=== PATIENT | female | born 1970 | race Caucasian/White ===

== ENCOUNTER → 2016-10-10 | Outpatient (CLI) | payer MEDICAID ==
--- NOTE | 2016-10-11 09:47 | MM ---
Reason for exam: screening (asymptomatic). Last mammogram was performed 1 year and 5 months ago. History: Took hormonal contraceptives for 6 years beginning at age 34. Physical Findings: A clinical breast exam by your physician is recommended on an annual basis and results should be correlated with mammographic findings. MG 3D Screening Mammo W/Cad Bilateral CC and MLO view(s) were taken. Prior study comparison: May 14, 2015, bilateral MG 3d screening mammo w/cad. There are scattered fibroglandular densities. There is no discrete abnormality. ASSESSMENT: Negative, BI-RAD 1 RECOMMENDATION: Routine screening mammogram of both breasts in 1 year.
== END | disposition home or self-care (01) ==
LOC: RADMAMWWP 08:00
PROVIDERS: ATTEND Family Medicine
DX: Z12.31 Encounter for screening mammogram for malignant neoplasm of breast (principal)
CPT/HCPCS: 77063; G0202

== ENCOUNTER → 2017-09-27 | Outpatient (CLI) | payer MEDICAID ==
[2017-09-27 07:39] LABS: Basophils % (A) 0 %; Eosinophils # (A) 0.2 k/uL (0-0.7); Eosinophils % (A) 2 %; HCT 39.9 % (34.0-46.0); Lymphocytes # (A) 1.3 k/uL (1.0-4.8); Lymphocytes % (A) 16 %; MCHC 32.5 g/dL (31.0-37.0); Mean Platelet Volume 6.4; Monocytes # (A) 0.5 k/uL (0-1.0); Monocytes % (A) 6 %; Neutrophils % (A) 74 %; Platelet Count 330 k/uL (150-450); RDW 15.6 % (11.5-15.5); WBC 8.2 k/uL (3.8-10.6)
[2017-09-27 08:04] LABS: ALT 25 U/L (9-52); AST 15 U/L (14-36); Albumin 3.6 g/dL (3.5-5.0); Alkaline Phosphatase 92 U/L (38-126); Anion Gap 12 mmol/L; Blood Urea Nitrogen 11 mg/dL (7-17); Carbon Dioxide 24 mmol/L (22-30); Chloride 106 mmol/L (98-107); Cholesterol 142 mg/dL (<200); Glucose 92 mg/dL (74-99); HDL Cholesterol 56 mg/dL (40-60); LDL Cholesterol,Calculated 74 mg/dL (0-99); Potassium 4.3 mmol/L (3.5-5.1); Sodium 142 mmol/L (137-145); Total Bilirubin 0.5 mg/dL (0.2-1.3); Total Protein 6.4 g/dL (6.3-8.2); Triglycerides 60 mg/dL (<150)
== END | disposition home or self-care (01) ==
LOC: LABWHC1 07:08
PROVIDERS: ATTEND Physician Assistant Medical
DX: Z00.00 Encounter for general adult medical examination without abnormal findings (principal)
CPT/HCPCS: 36415; 80053; 80061; 82306; 84443; 85025

== ENCOUNTER 2018-06-06 04:25 | Inpatient (IN) | payer MEDICAID ==
[2018-06-06 05:05] LABS: Basophils % (A) 0 %; Eosinophils # (A) 0.3 k/uL (0-0.7); Eosinophils % (A) 3 %; HCT 39.6 % (34.0-46.0); HGB 12.7 gm/dL (11.4-16.0); Hypochromasia Slight; Lymphocytes # (A) 1.8 k/uL (1.0-4.8); Lymphocytes % (A) 17 %; MCH 25.6 pg (25.0-35.0); MCV 80.2 fL (80.0-100.0); Mean Platelet Volume 6.1; Monocytes # (A) 0.5 k/uL (0-1.0); Monocytes % (A) 5 %; Neutrophils # (A) 7.8 k/uL (1.3-7.7); Neutrophils % (A) 74 %; Platelet Count 408 k/uL (150-450); RBC 4.94 m/uL (3.80-5.40); RDW 15.3 % (11.5-15.5); WBC 10.6 k/uL (3.8-10.6)
--- NOTE | 2018-06-06 05:17 | XR ---
EXAM: XR Chest, 2 Views CLINICAL HISTORY: Chest Pain TECHNIQUE: Frontal and lateral views of the chest. COMPARISON: 02/23/15 FINDINGS: Lungs: Unremarkable. No consolidation. Pleural space: Unremarkable. No pneumothorax. Heart: Unremarkable. No cardiomegaly. Mediastinum: Unremarkable. Bones/joints: Unremarkable. IMPRESSION: No acute findings or substantial change
[2018-06-06 05:18] LABS: ALT 28 U/L (9-52); AST 16 U/L (14-36); Albumin 3.9 g/dL (3.5-5.0); Alkaline Phosphatase 101 U/L (38-126); Amylase 58 U/L (30-110); Anion Gap 7 mmol/L; Blood Urea Nitrogen 19 mg/dL (7-17); Calcium 9.2 mg/dL (8.4-10.2); Carbon Dioxide 23 mmol/L (22-30); Chloride 108 mmol/L (98-107); D-Dimer 0.47 mg/L FEU (<0.60); Glucose 104 mg/dL (74-99); INR 0.9 (<1.2); Lipase 115 U/L (23-300); Partial Thromboplastin Time 23.6 sec (22.0-30.0); Potassium 4.5 mmol/L (3.5-5.1); Prothrombin Time 10.1 sec (9.0-12.0); Sodium 138 mmol/L (137-145); Total Bilirubin 0.5 mg/dL (0.2-1.3); Total Protein 7.1 g/dL (6.3-8.2)
[2018-06-06 05:24] LABS: Creatine Kinase 42 U/L (30-135)
[2018-06-06 05:37] LABS: Creatine Kinase MB 0.4 ng/mL (0.0-2.4); Troponin I <0.012 ng/mL (0.000-0.034)
--- NOTE | 2018-06-06 05:52 | ED ---
Chest Pain HPI - General Chief Complaint: Chest Pain Stated Complaint: chest pain, HTN Time Seen by Provider: 06/06/18 04:37 Source: patient Mode of arrival: ambulatory Limitations: no limitations - History of Present Illness Initial Comments: This patient is 47-year-old woman who woke about 2 hours ago with a bit of a headache. This followed shortly thereafter by having substernal chest pains, aching in character, and severe intensity. The patient notes that the pains tend to be somewhat intermittent. They tend to come on and get very bad for about a minute and then decrease for a variable period of time. No associated symptoms. MD Complaint: chest pain Onset/Timin -: hour(s) Onset: during rest Pain Location: substernal Severity: moderate Quality: aching Consistency: intermittent Improves With: nothing Worsens With: nothing - Related Data Home Medications Medication Instructions Recorded Confirmed Atorvastatin Calcium [Lipitor] 20 mg PO HS 06/06/18 06/06/18 Irbesartan/Hydrochlorothiazide 1 each PO 06/06/18 [Irbesartan-Hctz 150-12.5 mg Tb] Previous Rx's Medication Instructions Recorded Nitroglycerin Sl Tabs [Nitrostat] 0.4 mg SUBLINGUAL Q5M PRN #1 bottle 02/25/15 Allergies Allergy/AdvReac Type Severity Reaction Status Date / Time No Known Allergies Allergy Verified 02/23/15 09:22 Review of Systems ROS Statement: Those systems with pertinent positive or pertinent negative responses have been documented in the HPI. ROS Other: All systems not noted in ROS Statement are negative. Constitutional: Denies: fever, chills, weakness Respiratory: Denies: cough, dyspnea, wheezes, hemoptysis Cardiovascular: Reports: chest pain. Denies: palpitations, orthopnea, edema, syncope Gastrointestinal: Denies: abdominal pain, nausea, vomiting Genitourinary: Denies: dysuria, hematuria Musculoskeletal: Denies: back pain Skin: Denies: rash Neurological: Denies: headache, weakness, numbness EKG Findings - EKG Results: EKG: interpreted by GHISLAINE, sinus rhythm, normal axis, normal QRS, normal ST/T EKG shows: tachycardia (Rate 102 BPM) Past Medical History Past Medical History: No Reported History Additional Past Medical History / Comment(s): 02/23/15 Pt presented to [facility] ER with having at 0430 this AM got up to go to the bathroom and when she stood- severe chest pain in center of chest that radiated across back and down L arm. Other HX: Pt fell in bathtub several days ago-bruising R leg from that fall. History of Any Multi-Drug Resistant Organisms: None Reported Past Surgical History: Adenoidectomy, Appendectomy, Section, Tonsillectomy Additional Past Surgical History / Comment(s): x 2. Past Anesthesia/Blood Transfusion Reactions: No Reported Reaction Additional Past Anesthesia/Blood Transfusion Reaction / Comment(s): Pt has never recieved blood. Past Psychological History: No Psychological Hx Reported Smoking Status: Never smoker Past Alcohol Use History: Rare Past Drug Use History: None Reported - Past Family History Father Family Medical History: COPD, Coronary Artery Disease (CAD) Additional Family Medical History / Comment(s): Father has had 3 vessel CABH. He is 68yrs old. Mother Family Medical History: Hypertension Additional Family Medical History / Comment(s): Mother is 67 yrs old. General Exam Limitations: no limitations General appearance: alert, in no apparent distress Head exam: Present: atraumatic, normocephalic Eye exam: Present: normal appearance. Absent: scleral icterus, conjunctival injection ENT exam: Present: normal oropharynx Neck exam: Present: normal inspection, full ROM. Absent: tenderness Respiratory exam: Present: normal lung sounds bilaterally, chest wall tenderness. Absent: respiratory distress, wheezes, rales, rhonchi, stridor Cardiovascular Exam: Present: regular rate, normal rhythm, normal heart sounds. Absent: systolic murmur, diastolic murmur, rubs, gallop GI/Abdominal exam: Present: soft. Absent: distended, tenderness, guarding, rebound, mass Extremities exam: Present: normal inspection, normal capillary refill. Absent: pedal edema, calf tenderness Back exam: Present: normal inspection. Absent: CVA tenderness (R), CVA tenderness (L) Neurological exam: Present: alert Skin exam: Present: warm, dry, intact, normal color. Absent: rash Course Vital Signs 06/06/18 06/06/18 06/06/18 04:28 04:53 05:00 Temperature 98.9 F Pulse Rate 102 H 96 Respiratory 20 9 L Rate Blood Pressure 178/83 O2 Sat by Pulse 100 100 100 Oximetry 06/06/18 06/06/18 06/06/18 05:11 05:20 05:30 Temperature Pulse Rate 96 87 96 Respiratory 17 17 19 Rate Blood Pressure 144/93 144/93 O2 Sat by Pulse 100 100 100 Oximetry 06/06/18 06/06/18 06:00 06:30 Temperature Pulse Rate 89 84 Respiratory 23 19 Rate Blood Pressure 145/87 143/86 O2 Sat by Pulse 100 100 Oximetry Disposition Clinical Impression: Chest pain Disposition: ADMITTED IP TO THIS HOSP Condition: Good Instructions (If sedation given, give patient instructions): Chest Pain (ED) Is patient prescribed a controlled substance at d/c from ED?: No Referrals: Jenaro Love DO [Primary Care Provider] - 1-2 days
[2018-06-06] MEDS ORDERED: NITROGLYCERIN SL TABS 0.4 MG TAB SUBLINGUAL PRN (06:53)
--- NOTE | 2018-06-06 09:47 | P.CRDCN ---
History of Present Illness History of present illness: This is a pleasant 47-year-old female past medical history significant for hypertension, dyslipidemia and morbid obesity. She follows in the office with Dr. Rowe. Witnesses here in consultation for chest pain. She states she woke up around 2:00 in the morning with an extreme headache. Headache was the base of her neck with radiation up to the top of her head. She checked her blood pressure at home and it was over 180 systolic. She decided to take a shower to see if she couldn't relieve her headache after getting out of the shower she started feeling a heavy pressure sensation in the midsternal region. There is no radiation to the arm, back, neck or jaw. There is no associated shortness of breath, dizziness, palpitations, nausea, vomiting or diaphoresis. Blood pressure on arrival to the emergency department 178/83 heart rate 102. She was given no medications since arrival and blood pressure this morning has come down to the 140 systolic. Hydrochlorothiazide was added to her daily regimen but she has yet to receive a dose. EKG reveals sinus mechanism with nonspecific abnormalities noted. No acute ST or T-wave abnormalities. Chest x-ray negative for an acute cardiopulmonary process. Laboratory data reviewed, WBC 10.6, hemoglobin 12.7, platelets 408, d-dimer 0.47 , sodium 138, potassium 4.5, creatinine 0.79, magnesium 2.0, cardiac enzymes negative 1. Current cardiac medications include irbesartan 150 mg daily and atorvastatin 20 mg daily. Cardiac catheterization performed 2014 revealed no significant obstructive disease with a normal LVEDP and no wall motion abnormalities. Most recent echocardiogram obtained in the office August 2016 reveals preserved left ventricular systolic function with ejection fraction 55%. At the time of my exam: CONSTITUTIONAL: Denies fever. Denies chills. EYES: Denies blurred vision. Denies vision changes. Denies eye pain. EARS, NOSE, MOUTH & THROAT: Denies headache. Denies sore throat. Denies ear pain. CARDIOVASCULAR: Denies chest pain. Denies shortness of breath. Denies orthopnea. Denies PND. Denies palpitations. RESPIRATORY: Denies cough. GASTROINTESTINAL: Denies abdominal pain. Denies diarrhea. Denies constipation. Denies nausea. Denies vomiting. MUSCULOSKELETAL: Denies myalgias. INTEGUMENTARY: Denies pruitis. Denies rash. NEUROLOGIC: Denies numbness. Denies tingling. Denies weakness. PSYCHIATRIC: Denies anxiety. Denies depression. ENDOCRINE: Denies fatigue. Denies weight change. Denies polydipsia. Denies polyurina. GENITOURINARY: Denies burning, hematuria or urgency with micturation. HEMATOLOGIC: Denies history of anemia. Denies bleeding. Blood pressure 142/83 heart rate 77 afebrile maintaining oxygen saturation on room air GENERAL: This is a 47-year-old female in no apparent distress at the time of my examination. Morbidly obese. HEENT: Head is atraumatic, normocephalic. Pupils are equal, round. Sclerae anicteric. Conjunctivae are clear. Mucous membranes of the mouth are moist. Neck is supple. There is no jugular venous distention. No carotid bruit is heard. LUNGS: Clear to auscultation no wheezes, rales or rhonchi. No chest wall tenderness is noted on palpation or with deep breathing. HEART: Regular rate and rhythm without murmurs, rubs or gallops. S1 and S2 heard. ABDOMEN: Soft, nontender. Bowel sounds are heard. No organomegaly noted. EXTREMITIES: No evidence of peripheral edema and no calf tenderness noted. VASCULAR: Radial and dorsalis pedis pulses palpated, no evidence of clubbing. NEUROLOGIC: Patient is awake, alert and oriented x3. ASSESSMENT Chest pain, atypical for angina. Headache Hypertension, uncontrolled Dyslipidemia PLAN Symptoms are very atypical for angina. Patient had normal cardiac catheterization in 2014 with no evidence of obstructive coronary artery disease. Symptoms may be related to uncontrolled hypertension and headache. Agree with addition of hydrochlorothiazide to her daily regimen. Continue to obtain serial cardiac enzymes rule out an acute coronary event. Obtain 2-D echocardiogram and Doppler study to assess cardiac structure and function. If above testing is normal, she is stable for discharge from a cardiac perspective. Follow-up with Dr. Anne. Thank you kindly for this consultation. Nurse Practitioner note has been reviewed, I agree with a documented findings and plan of care. Patient was seen and examined. 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 History of Any Multi-Drug Resistant Organisms: None Reported Past Surgical History: Adenoidectomy, Appendectomy, Section, Tonsillectomy Additional Past Surgical History / Comment(s): x 2. Past Anesthesia/Blood Transfusion Reactions: No Reported Reaction Additional Past Anesthesia/Blood Transfusion Reaction / Comment(s): Pt has never recieved blood. Smoking Status: Never smoker - Past Family History Father Family Medical History: COPD, Coronary Artery Disease (CAD) Additional Family Medical History / Comment(s): Father has had 3 vessel CABH. He is 72 yrs old. Mother Family Medical History: Hypertension Additional Family Medical History / Comment(s): Mother is 70 yrs old. Medications and Allergies Home Medications Medication Instructions Recorded Confirmed Type Ascorbic Acid [Vitamin C] 500 mg PO DAILY 06/06/18 06/06/18 History Atorvastatin Calcium [Lipitor] 20 mg PO HS 06/06/18 06/06/18 History Cholecalciferol [Vitamin D3] 1,000 unit PO DAILY 06/06/18 06/06/18 History Irbesartan [Avapro] 150 mg PO DAILY 06/06/18 06/06/18 History Soy Isofla/Blk Cohosh/Mag Bark 155 mg PO DAILY 06/06/18 06/06/18 History [Estroven 155 mg Capsule] Allergies Allergy/AdvReac Type Severity Reaction Status Date / Time No Known Allergies Allergy Verified 06/06/18 07:14 Physical Exam Vitals: Vital Signs Temp Pulse Resp BP Pulse Ox 06/06/18 06:30 84 19 143/86 100 06/06/18 06:00 89 23 145/87 100 06/06/18 05:30 96 19 144/93 100 06/06/18 05:20 87 17 144/93 100 06/06/18 05:11 96 17 100 06/06/18 05:00 96 9 L 100 06/06/18 04:53 100 06/06/18 04:28 98.9 F 102 H 20 178/83 100 Intake and Output 06/05/18 06/06/18 06/06/18 22:59 06:59 14:59 Other: Weight 118.841 kg Results 06/06/18 04:51 06/06/18 04:51 Cardiac Enzymes 06/06/18 06/06/18 Range/Units 04:51 04:51 AST 16 (14-36) U/L CK-MB (CK-2) 0.4 (0.0-2.4) ng/mL Troponin I <0.012 (0.000-0.034) ng/mL Coagulation 06/06/18 Range/Units 04:51 PT 10.1 (9.0-12.0) sec APTT 23.6 (22.0-30.0) sec CBC 06/06/18 Range/Units 04:51 WBC 10.6 (3.8-10.6) k/uL RBC 4.94 (3.80-5.40) m/uL Hgb 12.7 (11.4-16.0) gm/dL Hct 39.6 (34.0-46.0) % Plt Count 408 (150-450) k/uL Comprehensive Metabolic Panel 06/06/18 Range/Units 04:51 Sodium 138 (137-145) mmol/L Potassium 4.5 (3.5-5.1) mmol/L Chloride 108 H (98-107) mmol/L Carbon Dioxide 23 (22-30) mmol/L BUN 19 H (7-17) mg/dL Creatinine 0.79 (0.52-1.04) mg/dL Glucose 104 H (74-99) mg/dL Calcium 9.2 (8.4-10.2) mg/dL AST 16 (14-36) U/L ALT 28 (9-52) U/L Alkaline Phosphatase 101 (38-126) U/L Total Protein 7.1 (6.3-8.2) g/dL Albumin 3.9 (3.5-5.0) g/dL Current Medications Generic Name Dose Route Start Last Admin Trade Name Freq PRN Reason Stop Dose Admin Aspirin 325 mg 06/07/18 09:00 Aspirin PO DAILY [facility] Atorvastatin Calcium 20 mg 06/06/18 21:00 Lipitor PO HS [facility]ILIA HCTZ/Losartan Potassium 1 each 06/06/18 09:00 Hyzaar 50-12.5 PO DAILY [facility] Sodium Chloride 1,000 mls @ 20 mls/hr 06/06/18 07:00 Saline 0.9% IV .Q24H [facility] Nitroglycerin 0.4 mg 06/06/18 06:53 Nitrostat SUBLINGUAL Q5M PRN Chest Pain Intake and Output 06/05/18 06/06/18 06/06/18 22:59 06:59 14:59 Other: Weight 118.841 kg 06/06/18 04:51 06/06/18 04:51
--- NOTE | 2018-06-06 10:04 | ECHOF ---
Referral Reason:cp MEASUREMENTS -------- HEIGHT: 152.4 cm WEIGHT: 118.8 kg BP: 143/86 IVSd: 1.2 cm (0.6 - 1.1) LVIDd: 4.1 cm (3.9 - 5.3) LVPWd: 1.2 cm (0.6 - 1.1) IVSs: 1.6 cm LVIDs: 2.5 cm LVPWs: 1.5 cm LA Diam: 3.3 cm (2.7 - 3.8) Ao Diam: 2.7 cm (2.0 - 3.7) AV Cusp: 1.7 cm (1.5 - 2.6) LA Diam: 3.9 cm (2.7 - 3.8) MV EXCURSION: 17.354 mm (> 18.000) MV EF SLOPE: 99 mm/s (70 - 150) EPSS: 0.3 cm MV E Hiram: 0.81 m/s MV DecT: 294 ms MV A Hiram: 0.85 m/s MV E/A Ratio: 0.96 RAP: 5.00 mmHg RVSP: 27.12 mmHg FINDINGS -------- Sinus rhythm. Morbid Obesity The left ventricular size is normal. There is mild concentric left ventricular hypertrophy. Overa ll left ventricular systolic function is normal with, an EF between 55 - 60 %. The right ventricle is normal in size. The left atrial size is normal. The right atrial size is normal. There is mild aortic valve sclerosis. There is no evidence of aortic regurgitation. Mild mitral annular calcification present. Mild mitral regurgitation is present. Mild tricuspid regurgitation present. There is no evidence of pulmonary hypertension. The right v entricular systolic pressure, as measured by Doppler, is 27.12mmHg. There is no pulmonic regurgitation present. The aortic root size is normal. There is no pericardial effusion. CONCLUSIONS -------- 1. Morbid Obesity 2. The left ventricular size is normal. 3. There is mild concentric left ventricular hypertrophy. 4. Overall left ventricular systolic function is normal with, an EF between 55 - 60 %. 5. The right ventricle is normal in size. 6. The left atrial size is normal. 7. The right atrial size is normal. 8. There is mild aortic valve sclerosis. 9. Mild mitral annular calcification present. 10. Mild mitral regurgitation is present. 11. Mild tricuspid regurgitation present. 12. There is no evidence of pulmonary hypertension. 13. The right ventricular systolic pressure, as measured by Doppler, is 27.12mmHg. 14. There is no pulmonic regurgitation present. 15. The aortic root size is normal. 16. There is no pericardial effusion. EDUCATION DEAN: Jessica Erwin RDCS
[2018-06-06 10:48] LABS: Cholesterol 152 mg/dL (<200); HDL Cholesterol 58 mg/dL (40-60); LDL Cholesterol,Calculated 82 mg/dL (0-99); Triglycerides 58 mg/dL (<150)
[2018-06-06 12:08] LABS: Creatine Kinase MB 8.8 ng/mL (0.0-2.4)
[2018-06-06 12:21] LABS: Troponin I 2.27 ng/mL (0.000-0.034)
[2018-06-06] MEDS ORDERED: HEPARIN SODIUM,PORCINE 5,000 UNIT/ML 1 ML VIAL IV PRN (12:25)
[2018-06-06] MEDS ORDERED: HEPARIN SODIUM,PORCINE 5,000 UNIT/ML 1 ML VIAL IV ONE (12:25)
[2018-06-06] MEDS ORDERED: ALPRAZolam 0.25 MG TAB PO PRN (12:28)
[2018-06-06] MEDS ORDERED: ALPRAZolam 0.5 MG TAB PO PRN (12:28)
[2018-06-06] MEDS ORDERED: HEPARIN SOD,PORK IN 0.45% NACL 25,000 UNIT in 0.45% NACL 1 250ML.BAG IV SCH (12:30)
[2018-06-06 13:28] LABS: Basophils % (A) 0 %; Eosinophils # (A) 0.2 k/uL (0-0.7); Eosinophils % (A) 2 %; HCT 39.4 % (34.0-46.0); HGB 12.6 gm/dL (11.4-16.0); Hypochromasia Slight; Lymphocytes % (A) 18 %; MCH 25.7 pg (25.0-35.0); MCV 80.4 fL (80.0-100.0); Mean Platelet Volume 6.2; Monocytes # (A) 0.6 k/uL (0-1.0); Monocytes % (A) 5 %; Neutrophils # (A) 8.6 k/uL (1.3-7.7); Neutrophils % (A) 74 %; Platelet Count 441 k/uL (150-450); RDW 15.3 % (11.5-15.5); WBC 11.6 k/uL (3.8-10.6)
[2018-06-06 13:40] LABS: INR 0.9 (<1.2); Partial Thromboplastin Time 24.3 sec (22.0-30.0); Prothrombin Time 10.2 sec (9.0-12.0)
[2018-06-06 14:12] LABS: Erythrocyte Sedimentation Rate 24 mm/hr (0-20)
[2018-06-06] MEDS: LOSARTAN-HCTZ 50-12.5 MG 1 EACH TAB PO SCH (14:17)
[2018-06-06] MEDS: SODIUM CHLORIDE 0.9% 1,000 ML IV SCH (17:22)
[2018-06-06] MEDS: SODIUM CHLORIDE 0.9% 1,000 ML in EMPTY BAG 1 BAG IV ONE ×2 (17:25→18:45)
[2018-06-06 17:44] LABS: Creatine Kinase MB 6.5 ng/mL (0.0-2.4)
[2018-06-06 18:09] LABS: Troponin I 2.47 ng/mL (0.000-0.034)
--- NOTE | 2018-06-06 18:28 | P.HPIM ---
History of Present Illness this is a pleasant 47 yo F with pmh of hypertension hyperlipideiam , who presents wtih chest pain of one day duration that is central radiating below the left breast, non specific or sharp in character , about 3/10 in severity and now it is 0/10 , associated with simple headache , no dyspnea or nausea or vomiting . no change in urine or bowel habits . no fever on admission her vitals looks stable however she has trending up torponin 0.012 to 2.2 and 2.4, pt hsa been evaluated by geological aide and was started on heparin drip , lipitor and aspirin . Review of Systems CONSTITUTIONAL: No fever, no malaise, no fatigue. HEENT: No recent visual problems or hearing problems. Denied any sore throat. CARDIOVASCULAR: No orthopnea, PND, no palpitations, no syncope. PULMONARY: No shortness of breath, no cough, no hemoptysis. GASTROINTESTINAL: No diarrhea, no nausea, no vomiting, no abdominal pain. Normoactive bowel sounds. NEUROLOGICAL: No headaches, no weakness, no numbness. HEMATOLOGICAL: Denies any bleeding or petechiae. GENITOURINARY: Denies any burning micturition, frequency, or urgency. MUSCULOSKELETAL/RHEUMATOLOGICAL: Denies any joint pain, swelling, or any muscle pain. ENDOCRINE: Denies any polyuria or polydipsia. 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 History of Any Multi-Drug Resistant Organisms: None Reported Past Surgical History: Adenoidectomy, Appendectomy, Section, Tonsillectomy Additional Past Surgical History / Comment(s): x 2. Past Anesthesia/Blood Transfusion Reactions: No Reported Reaction Additional Past Anesthesia/Blood Transfusion Reaction / Comment(s): Pt has never recieved blood. Smoking Status: Never smoker - Past Family History Father Family Medical History: COPD, Coronary Artery Disease (CAD) Additional Family Medical History / Comment(s): Father has had 3 vessel CABH. He is 72 yrs old. Mother Family Medical History: Hypertension Additional Family Medical History / Comment(s): Mother is 70 yrs old. Medications and Allergies Home Medications Medication Instructions Recorded Confirmed Type Ascorbic Acid [Vitamin C] 500 mg PO DAILY 06/06/18 06/06/18 History Atorvastatin Calcium [Lipitor] 20 mg PO HS 06/06/18 06/06/18 History Cholecalciferol [Vitamin D3] 1,000 unit PO DAILY 06/06/18 06/06/18 History Irbesartan [Avapro] 150 mg PO DAILY 06/06/18 06/06/18 History Soy Isofla/Blk Cohosh/Mag Bark 155 mg PO DAILY 06/06/18 06/06/18 History [Estroven 155 mg Capsule] Allergies Allergy/AdvReac Type Severity Reaction Status Date / Time No Known Allergies Allergy Verified 06/06/18 07:14 Physical Exam Vitals: Vital Signs Temp Pulse Pulse Resp BP BP Pulse Ox 06/06/18 17:20 98.2 F 77 16 135/86 97 06/06/18 16:00 83 16 06/06/18 14:15 98 06/06/18 09:02 98 06/06/18 08:00 98.4 F 77 18 142/83 99 06/06/18 06:30 84 19 143/86 100 06/06/18 06:00 89 23 145/87 100 06/06/18 05:30 96 19 144/93 100 06/06/18 05:20 87 17 144/93 100 06/06/18 05:11 96 17 100 06/06/18 05:00 96 9 L 100 06/06/18 04:53 100 06/06/18 04:28 98.9 F 102 H 20 178/83 100 Intake and Output 06/06/18 06/06/18 06/06/18 06:59 14:59 22:59 Intake Total 0 Balance 0 Intake: Oral 0 Other: Voiding Method Toilet Weight 118.841 kg GENERAL: The patient is alert and oriented x3, not in any acute distress. Well developed, well nourished. HEENT: Pupils are round and equally reacting to light. EOMI. No scleral icterus. No conjunctival pallor. Normocephalic, atraumatic. No pharyngeal erythema. No thyromegaly. CARDIOVASCULAR: S1 and S2 present. No murmurs, rubs, or gallops. PULMONARY: Chest is clear to auscultation, no wheezing or crackles. ABDOMEN: Soft, nontender, nondistended, normoactive bowel sounds. No palpable organomegaly. MUSCULOSKELETAL: No joint swelling or deformity. EXTREMITIES: No cyanosis, clubbing, or pedal edema. NEUROLOGICAL: Gross neurological examination did not reveal any focal deficits. SKIN: No rashes. Results CBC & Chem 7: 06/06/18 13:11 06/06/18 04:51 Labs: Abnormal Lab Results - Last 24 Hours (Table) 06/06/18 06/06/18 06/06/18 Range/Units 04:51 04:51 11:18 WBC (3.8-10.6) k/uL Neutrophils # 7.8 H (1.3-7.7) k/uL ESR (0-20) mm/hr Chloride 108 H (98-107) mmol/L BUN 19 H (7-17) mg/dL Glucose 104 H (74-99) mg/dL Total Creatine Kinase 197 H (30-135) U/L CK-MB (CK-2) 8.8 H (0.0-2.4) ng/mL Troponin I 2.270 H* (0.000-0.034) ng/mL C-Reactive Protein (<10.0) mg/L 06/06/18 06/06/18 06/06/18 Range/Units 13:11 13:11 16:54 WBC 11.6 H (3.8-10.6) k/uL Neutrophils # 8.6 H (1.3-7.7) k/uL ESR 24 H (0-20) mm/hr Chloride (98-107) mmol/L BUN (7-17) mg/dL Glucose (74-99) mg/dL Total Creatine Kinase (30-135) U/L CK-MB (CK-2) 6.5 H (0.0-2.4) ng/mL Troponin I 2.470 H* (0.000-0.034) ng/mL C-Reactive Protein 13.7 H (<10.0) mg/L Thrombosis Risk Factor Assmnt - Choose All That Apply Any of the Below Risk Factors Present?: Yes Each Factor Represents 1 point: Age 41-60 years, Obesity (BMI >25) Other Risk Factors: No Other congenital or acquired thrombophilia - If yes, enter type in comment: No Thrombosis Risk Factor Assessment Total Risk Factor Score: 2 Thrombosis Risk Factor Assessment Level: Low Risk Assessment and Plan Assessment: non STEMI hypertension hyperlipidemia obesity mild leukocytosis , mostly reactive Plan: this is a pleasant 47 yo F who presents with non STEMI, continue with heparin drip , asa and statin , pt may go to cardiac cath tomorrow Labs and medication were reviewed.. Continue same treatment. Continue with symptomatic treatment. Resume home medication. Monitor lytes and vitals. DVT and GI prophylaxis. Further recommendations of the clinical course of the patient DVT prophylaxis: heparin GI Prophylaxis: Pepcid Prognosis is guarded
[2018-06-06] MEDS: FAMOTIDINE 20 MG/2 ML VIAL IV SCH (20:09)
[2018-06-06] MEDS ORDERED: ATORVASTATIN 20 MG TAB PO SCH (21:00)
[2018-06-07 02:27] LABS: Basophils % (A) 0 %; Eosinophils # (A) 0.3 k/uL (0-0.7); Eosinophils % (A) 3 %; HCT 37.7 % (34.0-46.0); HGB 12.3 gm/dL (11.4-16.0); Hypochromasia Slight; Lymphocytes % (A) 22 %; MCH 26.2 pg (25.0-35.0); MCHC 32.6 g/dL (31.0-37.0); MCV 80.3 fL (80.0-100.0); Mean Platelet Volume 6.1; Monocytes # (A) 0.6 k/uL (0-1.0); Monocytes % (A) 6 %; Neutrophils # (A) 6.2 k/uL (1.3-7.7); Neutrophils % (A) 67 %; Platelet Count 350 k/uL (150-450); RDW 15.2 % (11.5-15.5); WBC 9.3 k/uL (3.8-10.6)
[2018-06-07] MEDS ORDERED: ACETAMINOPHEN TAB 500 MG TAB PO PRN (04:21)
[2018-06-07] MEDS: FAMOTIDINE 20 MG/2 ML VIAL IV SCH ×2 (05:48→20:07)
[2018-06-07] MEDS: SODIUM CHLORIDE 0.9% 1,000 ML IV SCH (06:46)
[2018-06-07] MEDS: LOSARTAN-HCTZ 50-12.5 MG 1 EACH TAB PO SCH (06:46)
[2018-06-07] MEDS ORDERED: NITROGLYCERIN SL TABS 0.4 MG TAB SUBLINGUAL PRN (08:40)
[2018-06-07] MEDS ORDERED: ASPIRIN 325 MG TAB PO STA (08:40)
[2018-06-07] MEDS ORDERED: ALPRAZolam 0.5 MG TAB PO PRN (08:40)
[2018-06-07] MEDS ORDERED: ALPRAZolam 0.25 MG TAB PO PRN (08:40)
[2018-06-07] MEDS ORDERED: SODIUM CHLORIDE 0.9% 1,000 ML in EMPTY BAG 1 BAG IV ONE (08:40)
[2018-06-07] MEDS ORDERED: ATORVASTATIN 80 MG TAB PO STA (08:44)
[2018-06-07] MEDS ORDERED: ASPIRIN 325 MG TAB PO SCH (09:00)
[2018-06-07] MEDS ORDERED: VERAPAMIL 2.5 MG/ML 2 ML AMP ONE (09:09)
[2018-06-07] MEDS ORDERED: LIDOCAINE 1% INJ 10MG/ML (20 ML MDV) ONE (09:09)
[2018-06-07] MEDS ORDERED: IV FLUID CONTINUATION 425 ML IV ONE (09:10)
[2018-06-07] MEDS ORDERED: fentaNYL (PF) 50 MCG/ML 2 ML AMP ONE (09:10)
[2018-06-07] MEDS ORDERED: fentaNYL (PF) 50 MCG/ML 2 ML AMP IVP ONE (09:36)
[2018-06-07] MEDS ORDERED: LIDOCAINE 1% INJ 10MG/ML (20 ML MDV) SQ ONE (09:40)
[2018-06-07] MEDS ORDERED: MIDAZOLAM 2 MG/2 ML VIAL IVP ONE (09:42)
[2018-06-07] MEDS ORDERED: VERAPAMIL SYRINGE (5 MG/10 ML) INTRAARTER ONE (09:45)
[2018-06-07] MEDS ORDERED: HEPARIN SODIUM 1,000 UN/ML (10ML VL) ONE (09:51)
[2018-06-07] MEDS ORDERED: HEPARIN SODIUM 1,000 UN/ML (10ML VL) IV ONE (09:52)
[2018-06-07] MEDS ORDERED: IOPAMIDOL-370 100ML BTL INJ ONE (09:59)
[2018-06-07] MEDS ORDERED: RX INFO: IV CONTRAST WAS GIVEN 1 EACH MISC MISCELLANE PRN (10:13)
[2018-06-07] MEDS ORDERED: SODIUM CHLORIDE 0.9% 1,000 ML IV SCH (10:15)
--- NOTE | 2018-06-07 10:39 | PN ---
PROGRESS NOTE Mrs. Culver is a 47-year-old female who was admitted yesterday with headache and chest discomfort. She was evaluated by Dr. Spencer. She underwent an echocardiogram that revealed a preserved ventricular size and systolic function with mild mitral and tricuspid regurgitation. She is feeling well this morning. She has no further chest pain. Her troponin are up to 2.470, but her EKG shows no acute changes. Her BUN and creatinine 19 and 0.79, and her hemoglobin is 12.6. Her white blood cell of 11.6. PHYSICAL EXAMINATION: Blood pressure 135/60 with a heart rate in the 80s. LUNGS: Clear. HEART: Regular rate and rhythm, S1, S2. No S3. No rub. ABDOMEN: Soft, nontender. EXTREMITIES: No edema. IMPRESSION: 1. Troponin elevation in a patient who underwent cardiac catheterization in 2014 and at that time, she had no evidence of high-grade stenosis. At that time she was told that she may have had myopericarditis, although the EKG this time is not consistent with that. 2. History of hypertension. 3. Hyperlipidemia. RECOMMENDATION: At this time, I would recommend to proceed with cardiac catheterization to further evaluate her coronary anatomy. It is possible that the patient is having vasospastic disease and depending on that, further recommendation will be made. I have discussed with the patient and her the recommendation and the finding and they are in full understanding and agreement. MMODL / IJN: [id number] /
--- NOTE | 2018-06-07 12:09 | CC ---
CARDIAC CATHETERIZATION REPORT Mrs. Culver is a 47-year-old female with no prior documented history of coronary artery disease who presented with symptoms of headache and subsequently chest discomfort and had elevation of her troponin with no acute ST-segment changes. In view of that, recommendation made regarding cardiac catheterization, the procedures, risks and complications were discussed with the patient who is in full understanding and agreement. PROCEDURE: Patient was brought to engineer [facility] laboratory in a fasting semi-sedated state after receiving fentanyl and Benadryl and achieving moderate conscious sedated state. Using Xylocaine anesthesia and Seldinger technique, a 6-Malawian sheath was introduced in the right radial artery. Selective right and left angiography was performed using 5-Malawian 3.5 bend right and left Jose Alejandro catheter, multiple views of the coronary artery including hemiaxial views obtained. Following that, catheter and sheath were removed. Hemostasis was obtained with deployment of a TR band. There was no immediate complication. Patient is returned to her room in stable condition. FINDINGS: LEFT MAIN: This is a large-sized vessel, bifurcating into left circumflex, left anterior descending artery. Left main coronary artery has no evidence of high-grade stenosis. LEFT ANTERIOR DESCENDING ARTERY: This is a large-sized vessel, reaching toward the apex, tapers down the distal third, giving rise to two diagonal branches of moderate caliber. The left anterior descending artery has no evidence of high-grade stenosis. LEFT CIRCUMFLEX: This is a large nondominant vessel, giving rise to two large obtuse marginal branches. The left circumflex as well as branches have no evidence of obstructive coronary artery disease. RIGHT CORONARY ARTERY: This is a large dominant vessel, bifurcating distally into PDA and posterolateral segment and branches. The right coronary artery as well as branches have no evidence of obstructive coronary artery disease. LEFT VENTRICULOGRAM: The left ventriculogram was not performed. CONCLUSION: Normal coronary arteries. RECOMMENDATION: In view of finding anatomy, I have recommended to continue with present medical therapy. It is possible that the patient had evidence off vasospastic disease explaining her chest discomfort and elevation of the troponin. She will be started on a calcium channel osiris and depending on her progress, further recommendation will be made. Those findings and recommendation were discussed with the patient and her family who are in full understanding and agreement. Duration of procedure is 24 minutes. MMODL / IJN: [id number] /
[2018-06-07] MEDS: DILTIAZEM ORAL 30 MG TAB PO SCH ×3 (12:10→23:09)
--- NOTE | 2018-06-07 20:30 | P.PN ---
Subjective this is a pleasant 47 yo F with pmh of hypertension hyperlipideiam , who presents wtih chest pain of one day duration that is central radiating below the left breast, non specific or sharp in character , about 3/10 in severity and now it is 0/10 , associated with simple headache , no dyspnea or nausea or vomiting . no change in urine or bowel habits . no fever on admission her vitals looks stable however she has trending up torponin 0.012 to 2.2 and 2.4, pt hsa been evaluated by supervisor [employer] and was started on heparin drip , lipitor and aspirin . 06/07/2018 pt is status cardiac cath which showed patent coronary arteries, pt mostly has vasospastic disease and pt was started on calcium channel osiris, pt feel better after the procedure with no chest pain or dyspnea Objective - Vital Signs Vital signs: Vital Signs Temp 99.0 F 06/07/18 16:22 Pulse 80 06/07/18 16:22 Resp 16 06/07/18 16:22 BP 142/77 06/07/18 16:22 Pulse Ox 96 06/07/18 11:39 Intake & Output 06/07/18 06/07/18 06/08/18 06:59 18:59 06:59 Intake Total 74.517 100 Output Total 2 600 Balance 72.517 -500 Weight 117 kg Intake: IV 100 Intake, IV Titration 74.517 Amount Heparin Sod,Pork in 0.45% 74.517 NaCl 25,000 unit In 0.45 % NaCl 1 250ml.bag @ 8.4 UNITS/KG/HR 9.98 mls/hr IV .Q24H [facility] Rx#: [id number] Output: Urine 2 600 Other: Voiding Method Toilet - Exam GENERAL: The patient is alert and oriented x3, not in any acute distress. Well developed, well nourished. HEENT: Pupils are round and equally reacting to light. EOMI. No scleral icterus. No conjunctival pallor. Normocephalic, atraumatic. No pharyngeal erythema. No thyromegaly. CARDIOVASCULAR: S1 and S2 present. No murmurs, rubs, or gallops. PULMONARY: Chest is clear to auscultation, no wheezing or crackles. ABDOMEN: Soft, nontender, nondistended, normoactive bowel sounds. No palpable organomegaly. MUSCULOSKELETAL: No joint swelling or deformity. EXTREMITIES: No cyanosis, clubbing, or pedal edema. NEUROLOGICAL: Gross neurological examination did not reveal any focal deficits. SKIN: No rashes. - Labs CBC & Chem 7: 06/07/18 02:03 06/06/18 04:51 Labs: Abnormal Lab Results - Last 24 Hours (Table) 06/07/18 Range/Units 02:03 APTT 55.4 H (22.0-30.0) sec Assessment and Plan Assessment: non STEMI, mostly secondary to vasospastic disease hypertension hyperlipidemia obesity mild leukocytosis , mostly reactive Plan: this is a pleasant 47 yo F who presents with non STEMI, found to have vasospastic disease and was started on calcium channel osiris . continue with asa and statin , pt may be discharged in 24 hours if stable Labs and medication were reviewed.. Continue same treatment. Continue with symptomatic treatment. Resume home medication. Monitor lytes and vitals. DVT and GI prophylaxis. Further recommendations of the clinical course of the patient DVT prophylaxis: heparin GI Prophylaxis: Pepcid Prognosis is guarded
[2018-06-07] MEDS: HEPARIN SODIUM,PORCINE 5,000 UNIT/ML 1 ML VIAL SQ SCH (23:04)
[2018-06-08] MEDS: SODIUM CHLORIDE 0.9% 1,000 ML IV SCH (04:08)
[2018-06-08 06:56] LABS: Anion Gap 8 mmol/L; Blood Urea Nitrogen 10 mg/dL (7-17); Calcium 9.4 mg/dL (8.4-10.2); Carbon Dioxide 28 mmol/L (22-30); Chloride 104 mmol/L (98-107); Glucose 96 mg/dL (74-99); Potassium 4.8 mmol/L (3.5-5.1); Sodium 140 mmol/L (137-145)
[2018-06-08] MEDS: ASPIRIN 81 MG PO SCH (08:31)
[2018-06-08] MEDS: HEPARIN SODIUM,PORCINE 5,000 UNIT/ML 1 ML VIAL SQ SCH ×2 (08:31→20:30)
[2018-06-08] MEDS: FAMOTIDINE 20 MG/2 ML VIAL IV SCH ×2 (08:31→08:39)
[2018-06-08] MEDS: DILTIAZEM ORAL 30 MG TAB PO SCH (08:31)
[2018-06-08] MEDS: LOSARTAN-HCTZ 50-12.5 MG 1 EACH TAB PO SCH (08:32)
[2018-06-08] MEDS: IBUPROFEN 600 MG TAB PO SCH ×2 (11:45→18:16)
[2018-06-08] MEDS: COLCHICINE 0.6 MG EACH PO SCH ×2 (11:46→20:31)
[2018-06-08] MEDS: DILTIAZEM CD 120 MG CAP.ER.24H PO SCH (12:02)
--- NOTE | 2018-06-08 12:57 | P.PN ---
Subjective Progress Note Date: 06/08/18 This is a pleasant 47-year-old female past medical history significant for hypertension, dyslipidemia and morbid obesity. She follows in the office with Dr. Rowe. Witnesses here in consultation for chest pain. She states she woke up around 2:00 in the morning with an extreme headache. Headache was the base of her neck with radiation up to the top of her head. She checked her blood pressure at home and it was over 180 systolic. She decided to take a shower to see if she couldn't relieve her headache after getting out of the shower she started feeling a heavy pressure sensation in the midsternal region. There is no radiation to the arm, back, neck or jaw. There is no associated shortness of breath, dizziness, palpitations, nausea, vomiting or diaphoresis. Blood pressure on arrival to the emergency department 178/83 heart rate 102. She was given no medications since arrival and blood pressure this morning has come down to the 140 systolic. Hydrochlorothiazide was added to her daily regimen but she has yet to receive a dose. EKG reveals sinus mechanism with nonspecific abnormalities noted. No acute ST or T-wave abnormalities. Chest x-ray negative for an acute cardiopulmonary process. Laboratory data reviewed, WBC 10.6, hemoglobin 12.7, platelets 408, d-dimer 0.47 , sodium 138, potassium 4.5, creatinine 0.79, magnesium 2.0, cardiac enzymes negative 1. Current cardiac medications include irbesartan 150 mg daily and atorvastatin 20 mg daily. Cardiac catheterization performed 2014 revealed no significant obstructive disease with a normal LVEDP and no wall motion abnormalities. Most recent echocardiogram obtained in the office August 2016 reveals preserved left ventricular systolic function with ejection fraction 55%. 06/08/2018 Patient was taken to the cardiac catheterization lab yesterday where she was not found to have any significant obstructive coronary artery disease. It was felt that the patient may have an element of vasospasm. Blood pressure this morning 128/70 with a heart rate in the 70s, 98% on room air. Sedimentation rate came back elevated at 24, C-reactive protein elevated at 13.7. Suggesting a possible element of pericarditis. We initiated the patient on colchicine and nonsteroidal anti-inflammatories today. We will continue to observe her overnight. The recommendation is that the patient undergo a cardiac MRI as an outpatient for more definitive diagnosis. This was explained to the patient and her in detail. Objective - Vital Signs Vital signs: Vital Signs Temp 99.3 F 06/08/18 12:00 Pulse 77 06/08/18 12:00 Resp 18 06/08/18 12:00 BP 129/72 06/08/18 12:00 Pulse Ox 98 06/08/18 12:00 Intake & Output 06/07/18 06/08/18 06/08/18 18:59 06:59 18:59 Intake Total 100 1000 Output Total 600 Balance -500 1000 Weight 116.2 kg Intake: IV 100 Intake, IV Titration 1000 Amount Sodium Chloride 0.9% 1, 1000 000 ml In Empty Bag 1 bag @ 1 ML/KG/HR 117 mls/hr IV .Q8H33M [facility] Rx#: [id number] Output: Urine 600 Other: Voiding Method Toilet # Voids 1 1 - Exam PHYSICAL EXAMINATION: GENERAL: 47-year-old female in no acute distress at the time of my examination HEENT: Head is atraumatic, normocephalic. Pupils equal, round. Sclera anicteric. Conjunctiva are clear. Mucous membranes of the mouth are moist. Neck is supple. There is no elevated jugular venous pressure. No carotid bruit is heard. HEART EXAMINATION: Heart S1, S2 normal. No murmur or gallop heard. CHEST EXAMINATION: Lungs are clear to auscultation and precussion. No chest wall tenderness is noted on palpation or with deep breathing. ABDOMEN: Soft, nontender. Bowel sounds are heard. No organomegaly noted. EXTREMITIES: 2+ peripheral pulses with no evidence of peripheral edema and no calf tenderness noted. Radial site clean and dry, good distal pulse. NEUROLOGIC patient is awake, alert and oriented 3 . . - Labs CBC & Chem 7: 06/07/18 02:03 06/08/18 06:10 Assessment and Plan Plan: Assessment and plan #1 Chest pain, atypical for angina. With abnormality in troponin, status post cardiac catheterization which did not reveal any obstructive coronary artery disease #2 Headache #3 Hypertension, uncontrolled #4 Dyslipidemia Plan CRP and sedimentation rate did come back elevated, we will start the patient on some nonsteroidals along with colchicine. We also will schedule the patient for an cardiac MRI early next week at [facility] as an outpatient. Continue to observe for 24 hours. DNP note has been reviewed, I agree with a documented findings and plan of care. Patient was seen and examined.
--- NOTE | 2018-06-08 19:05 | P.PN ---
Subjective this is a pleasant 47 yo F with pmh of hypertension hyperlipideiam , who presents wtih chest pain of one day duration that is central radiating below the left breast, non specific or sharp in character , about 3/10 in severity and now it is 0/10 , associated with simple headache , no dyspnea or nausea or vomiting . no change in urine or bowel habits . no fever on admission her vitals looks stable however she has trending up torponin 0.012 to 2.2 and 2.4, pt hsa been evaluated by academic support coordinator and was started on heparin drip , lipitor and aspirin . 06/07/2018 pt is status cardiac cath which showed patent coronary arteries, pt mostly has vasospastic disease and pt was started on calcium channel osiris, pt feel better after the procedure with no chest pain or dyspnea 06/08/2018 Patient was seen in the general medical floor today, she remains clinically stable with no chest pain or dyspnea. She is mobile with no problems. No headache. Patient also on colchicine and aspirin for possible myocarditis, also patient on ibuprofen morphine for pain and anti-inflammatory management. Patient is being followed by cardiology and kept in-house for further monitoring and possible discharge in 24-48 hours. Objective - Vital Signs Vital signs: Vital Signs Temp 98.9 F 06/08/18 16:00 Pulse 75 06/08/18 16:00 Resp 18 06/08/18 16:00 BP 128/72 06/08/18 16:00 Pulse Ox 97 06/08/18 16:00 Intake & Output 06/08/18 06/08/18 06/09/18 06:59 18:59 06:59 Intake Total 1000 0 Balance 1000 0 Weight 116.2 kg Intake: Intake, IV Titration 1000 Amount Sodium Chloride 0.9% 1, 1000 000 ml In Empty Bag 1 bag @ 1 ML/KG/HR 117 mls/hr IV .Q8H33M [facility] Rx#: [id number] Oral 0 Other: Voiding Method Toilet # Voids 1 1 - Exam GENERAL: The patient is alert and oriented x3, not in any acute distress. Well developed, well nourished. HEENT: Pupils are round and equally reacting to light. EOMI. No scleral icterus. No conjunctival pallor. Normocephalic, atraumatic. No pharyngeal erythema. No thyromegaly. CARDIOVASCULAR: S1 and S2 present. No murmurs, rubs, or gallops. PULMONARY: Chest is clear to auscultation, no wheezing or crackles. ABDOMEN: Soft, nontender, nondistended, normoactive bowel sounds. No palpable organomegaly. MUSCULOSKELETAL: No joint swelling or deformity. EXTREMITIES: No cyanosis, clubbing, or pedal edema. NEUROLOGICAL: Gross neurological examination did not reveal any focal deficits. SKIN: No rashes. - Labs CBC & Chem 7: 06/07/18 02:03 06/08/18 06:10 Assessment and Plan Assessment: non STEMI, mostly secondary to vasospastic disease hypertension hyperlipidemia obesity mild leukocytosis , mostly reactive Plan: this is a pleasant 47 yo F who presents with non STEMI, found to have vasospastic disease and was started on calcium channel osiris . continue with asa and statin , pt may be discharged in 24 hours if stable Labs and medication were reviewed.. Continue same treatment. Continue with symptomatic treatment. Resume home medication. Monitor lytes and vitals. DVT and GI prophylaxis. Further recommendations of the clinical course of the patient DVT prophylaxis: heparin GI Prophylaxis: Pepcid Prognosis is guarded
[2018-06-08] MEDS: FAMOTIDINE 20 MG TAB PO SCH (20:31)
[2018-06-08] MEDS ORDERED: ATORVASTATIN 20 MG TAB PO SCH (21:00)
[2018-06-09] MEDS: IBUPROFEN 600 MG TAB PO SCH ×2 (09:05→12:13)
[2018-06-09] MEDS: ASPIRIN 81 MG PO SCH (09:05)
[2018-06-09] MEDS: DILTIAZEM CD 120 MG CAP.ER.24H PO SCH (09:05)
[2018-06-09] MEDS: LOSARTAN-HCTZ 50-12.5 MG 1 EACH TAB PO SCH (09:05)
[2018-06-09] MEDS: COLCHICINE 0.6 MG EACH PO SCH (09:05)
[2018-06-09] MEDS: FAMOTIDINE 20 MG TAB PO SCH (09:05)
[2018-06-09] MEDS: HEPARIN SODIUM,PORCINE 5,000 UNIT/ML 1 ML VIAL SQ SCH (09:06)
[2018-06-09 09:14] VITALS: TEMP 98.8
[2018-06-09 10:38] LABS: Basophils % (A) 0 %; Eosinophils # (A) 0.3 k/uL (0-0.7); Eosinophils % (A) 4 %; HCT 40.7 % (34.0-46.0); HGB 12.8 gm/dL (11.4-16.0); Hypochromasia Slight; Lymphocytes # (A) 1.6 k/uL (1.0-4.8); Lymphocytes % (A) 18 %; MCH 25.6 pg (25.0-35.0); MCHC 31.4 g/dL (31.0-37.0); MCV 81.7 fL (80.0-100.0); Mean Platelet Volume 6.8; Monocytes # (A) 0.8 k/uL (0-1.0); Monocytes % (A) 9 %; Neutrophils # (A) 5.9 k/uL (1.3-7.7); Neutrophils % (A) 67 %; Platelet Count 394 k/uL (150-450); RBC 4.99 m/uL (3.80-5.40); RDW 15.5 % (11.5-15.5); WBC 8.9 k/uL (3.8-10.6)
[2018-06-09 10:47] LABS: Anion Gap 8 mmol/L; Blood Urea Nitrogen 13 mg/dL (7-17); Calcium 9.4 mg/dL (8.4-10.2); Carbon Dioxide 23 mmol/L (22-30); Chloride 107 mmol/L (98-107); Glucose 91 mg/dL (74-99); Potassium 4.8 mmol/L (3.5-5.1); Sodium 138 mmol/L (137-145)
[2018-06-09 12:42] VITALS: BP 150/86; PULSE 90; RESP 18
--- NOTE | 2018-06-09 14:56 | P.PN ---
Subjective Progress Note Date: 06/09/18 This is a pleasant 47-year-old female past medical history significant for hypertension, dyslipidemia and morbid obesity. She follows in the office with Dr. Rowe. Witnesses here in consultation for chest pain. She states she woke up around 2:00 in the morning with an extreme headache. Headache was the base of her neck with radiation up to the top of her head. She checked her blood pressure at home and it was over 180 systolic. She decided to take a shower to see if she couldn't relieve her headache after getting out of the shower she started feeling a heavy pressure sensation in the midsternal region. There is no radiation to the arm, back, neck or jaw. There is no associated shortness of breath, dizziness, palpitations, nausea, vomiting or diaphoresis. Blood pressure on arrival to the emergency department 178/83 heart rate 102. She was given no medications since arrival and blood pressure this morning has come down to the 140 systolic. Hydrochlorothiazide was added to her daily regimen but she has yet to receive a dose. EKG reveals sinus mechanism with nonspecific abnormalities noted. No acute ST or T-wave abnormalities. Chest x-ray negative for an acute cardiopulmonary process. Laboratory data reviewed, WBC 10.6, hemoglobin 12.7, platelets 408, d-dimer 0.47 , sodium 138, potassium 4.5, creatinine 0.79, magnesium 2.0, cardiac enzymes negative 1. Current cardiac medications include irbesartan 150 mg daily and atorvastatin 20 mg daily. Cardiac catheterization performed 2014 revealed no significant obstructive disease with a normal LVEDP and no wall motion abnormalities. Most recent echocardiogram obtained in the office August 2016 reveals preserved left ventricular systolic function with ejection fraction 55%. 06/08/2018 Patient was taken to the cardiac catheterization lab yesterday where she was not found to have any significant obstructive coronary artery disease. It was felt that the patient may have an element of vasospasm. Blood pressure this morning 128/70 with a heart rate in the 70s, 98% on room air. Sedimentation rate came back elevated at 24, C-reactive protein elevated at 13.7. Suggesting a possible element of pericarditis. We initiated the patient on colchicine and nonsteroidal anti-inflammatories today. We will continue to observe her overnight. The recommendation is that the patient undergo a cardiac MRI as an outpatient for more definitive diagnosis. This was explained to the patient and her in detail. 04/08/2019 Patient was seen and examined this morning, up ambulating in the [place] without any difficulty. She did have one episode of chest pain earlier this morning, sharp in nature, atypical. EKG showed normal sinus rhythm with no acute changes. She will be discharged home today. Scheduled for cardiac MRI next week at [facility]. Objective - Vital Signs Vital signs: Vital Signs Temp 98.8 F 06/09/18 08:00 Pulse 90 06/09/18 12:00 Resp 18 06/09/18 12:00 BP 150/86 06/09/18 12:00 Pulse Ox 100 06/09/18 12:00 Intake & Output 06/08/18 06/09/18 06/09/18 18:59 06:59 18:59 Intake Total 0 300 480 Balance 0 300 480 Weight 116.9 kg Intake: Oral 0 300 480 Other: Voiding Method Toilet # Voids 1 1 - Exam PHYSICAL EXAMINATION: GENERAL: 47-year-old female in no acute distress at the time of my examination HEENT: Head is atraumatic, normocephalic. Pupils equal, round. Sclera anicteric. Conjunctiva are clear. Mucous membranes of the mouth are moist. Neck is supple. There is no elevated jugular venous pressure. No carotid bruit is heard. HEART EXAMINATION: Heart S1, S2 normal. No murmur or gallop heard. CHEST EXAMINATION: Lungs are clear to auscultation and precussion. No chest wall tenderness is noted on palpation or with deep breathing. ABDOMEN: Soft, nontender. Bowel sounds are heard. No organomegaly noted. EXTREMITIES: 2+ peripheral pulses with no evidence of peripheral edema and no calf tenderness noted. Radial site clean and dry, good distal pulse. NEUROLOGIC patient is awake, alert and oriented 3 . . - Labs CBC & Chem 7: 06/09/18 10:17 06/09/18 10:17 Assessment and Plan Plan: Assessment and plan #1 Chest pain, atypical for angina. With abnormality in troponin, status post cardiac catheterization which did not reveal any obstructive coronary artery diseasepossible vasospasm, Possible myocarditis or pericarditis. #2 Headache #3 Hypertension, uncontrolled #4 Dyslipidemia Plan From cardiology's perspective, patient may be be discharged home today. She'll have a follow-up appointment in the office post discharge. We will schedule the patient for cardiac MRI next week. DNP note has been reviewed, I agree with a documented findings and plan of care. Patient was seen and examined.
== END 2018-06-09 17:14 | disposition home or self-care (01) | DRG 281 ==
LOC: EC 04:25 → 1SOBS 06:33 → 3SCARD 14:44 → OBSVTOIN 06-07 07:39
PROVIDERS: ADMIT Hospitalist; ATTEND Hospitalist
PROC: B2111ZZ Fluoroscopy of Multiple Coronary Arteries using Low Osmolar Contrast (ICD-10-PCS; 2018-06-07)
PROC: 4A023N7 Measurement of Cardiac Sampling and Pressure, Left Heart, Percutaneous Approach (ICD-10-PCS; principal; 2018-06-07 09:03)
DX: I21.4 Non-ST elevation (NSTEMI) myocardial infarction (principal); Z68.43 Body mass index [BMI] 50.0-59.9, adult; D72.829 Elevated white blood cell count, unspecified; E66.9 Obesity, unspecified; E78.5 Hyperlipidemia, unspecified; I08.1 Rheumatic disorders of both mitral and tricuspid valves; I10 Essential (primary) hypertension; Z79.899 Other long term (current) drug therapy; Z82.49 Family history of ischemic heart disease and other diseases of the circulatory system; Z82.5 Family history of asthma and other chronic lower respiratory diseases; R51 Headache
CPT/HCPCS: 36415; 71046; 80048; 80053; 80061; 82150; 82550; 82553; 83690; 83735; 84484; 85025; 85379; 85610; 85652; 85730; 86140; 93005; 93306; 93454; 99285

== ENCOUNTER → 2018-07-15 | Outpatient (CLI) | payer MEDICAID ==
--- NOTE | 2018-07-16 07:25 | US ---
EXAMINATION TYPE: US pelvis complete transvag DATE OF EXAM: 07/15/2018 COMPARISON: NONE CLINICAL HISTORY: N93.9 Abn bleeding, R10.2 Pelvic pain. Abnormal bleeding. TECHNIQUE: Transvaginal (TV) and Transabdominal (TA) . Transabdominal sonographic images of the pel vis were acquired. Transvaginal sonographic images were medically necessary to better assess the fol lowing anatomy: Ovaries and uterus. Date of LMP: 06/20/2018 EXAM MEASUREMENTS: Uterus: 10.1 x 4.8 x 5.7 cm Endometrial Stripe: 1.0 cm Left Ovary: 3.3 x 3.0 x 2.6 cm 1. Uterus: Anteverted Fluid seen in cervical canal. nabothian cysts seen. 2. Endometrium: wnl 3. Right Ovary: Obscured by overlying bowel gas 4. Left Ovary: Cystic area seen 2.2 x 2.4 x 2.0cm. 5. Bilateral Adnexa: wnl 6. Posterior cul-de-sac: wnl IMPRESSION: 1. Fluid is present within the cervical canal. Endometrial thickness is within normal limits for a pr emenopausal female. 2. Obscuration of the right ovary by overlying bowel gas and dominant 2.4 cm simple appearing follicl e on the left ovary, likely physiologic.
== END | disposition home or self-care (01) ==
LOC: RADUSMAIN 17:39
PROVIDERS: ATTEND Family Medicine
DX: R10.2 Pelvic and perineal pain (principal); N93.9 Abnormal uterine and vaginal bleeding, unspecified
CPT/HCPCS: 76830; 76856

== ENCOUNTER → 2018-07-19 | Outpatient (CLI) | payer MEDICAID | END | disposition home or self-care (01) | LOC: RADECHMAIN 11:51 | PROVIDERS: ATTEND Internal Medicine Clinical Cardiac Electrophysiology | DX: I47.1 Supraventricular tachycardia (principal); R00.1 Bradycardia, unspecified; R00.0 Tachycardia, unspecified | CPT/HCPCS: 93225; 93226 ==

== ENCOUNTER → 2018-08-02 | Outpatient (CLI) | payer MEDICAID ==
--- NOTE | 2018-08-05 11:59 | MM ---
Reason for exam: screening (asymptomatic). Last mammogram was performed 1 year and 10 months ago. History: Took hormonal contraceptives for 6 years beginning at age 34. Physical Findings: A clinical breast exam by your physician is recommended on an annual basis and results should be correlated with mammographic findings. MG 3D Screening Mammo W/Cad Bilateral CC and MLO view(s) were taken. Prior study comparison: October 10, 2016, bilateral MG 3d screening mammo w/cad. May 14, 2015, bilateral MG 3d screening mammo w/cad. The breast tissue is heterogeneously dense. This may lower the sensitivity of mammography. There is no discrete abnormality. ASSESSMENT: Negative, BI-RAD 1 RECOMMENDATION: Routine screening mammogram of both breasts in 1 year.
== END | disposition home or self-care (01) ==
LOC: RADMAMWWP 08:16
PROVIDERS: ATTEND Family Medicine
DX: Z12.31 Encounter for screening mammogram for malignant neoplasm of breast (principal)
CPT/HCPCS: 77063; 77067

== ENCOUNTER → 2018-10-05 | Outpatient (CLI) | payer MEDICAID ==
[2018-10-05 08:42] LABS: Basophils % (A) 0 %; Eosinophils # (A) 0.3 k/uL (0-0.7); Eosinophils % (A) 4 %; HCT 39.1 % (34.0-46.0); HGB 12.1 gm/dL (11.4-16.0); Hypochromasia Slight; Lymphocytes # (A) 1.6 k/uL (1.0-4.8); Lymphocytes % (A) 19 %; MCH 24.7 pg (25.0-35.0); MCHC 30.8 g/dL (31.0-37.0); MCV 80.2 fL (80.0-100.0); Mean Platelet Volume 6.6; Monocytes # (A) 0.4 k/uL (0-1.0); Monocytes % (A) 5 %; Neutrophils # (A) 5.8 k/uL (1.3-7.7); Neutrophils % (A) 70 %; Platelet Count 381 k/uL (150-450); RBC 4.87 m/uL (3.80-5.40); WBC 8.2 k/uL (3.8-10.6)
[2018-10-05 16:03] LABS: Cholesterol 155 mg/dL (0-200); Triglycerides <50.0 mg/dL (0.0-149.0); VLDL Calculation 9.98 mg/dL (5.00-40.00)
[2018-10-05 16:04] LABS: ALT 14 U/L (8-44); AST 14 U/L (13-35); Albumin/Globulin Ratio 1.58 (1.60-3.17); Alkaline Phosphatase 106 U/L (41-126); Calcium 9.5 mg/dL (8.7-10.3); Carbon Dioxide 26.8 mmol/L (21.6-31.8); Chloride 108 mmol/L (96-109); Globulin 2.6 g/dL (1.6-3.3); Glucose 96 mg/dL (70-110); Potassium 5.1 mmol/L (3.5-5.5); Sodium 140 mmol/L (135-145); Total Bilirubin 0.5 mg/dL (0.2-1.2); Total Protein 6.7 g/dL (6.2-8.2)
== END | disposition home or self-care (01) ==
LOC: LABWHC1 08:10
PROVIDERS: ATTEND Physician Assistant Medical
DX: Z00.00 Encounter for general adult medical examination without abnormal findings (principal); E55.9 Vitamin D deficiency, unspecified
CPT/HCPCS: 36415; 80053; 80061; 82306; 84443; 85025

== ENCOUNTER → 2018-10-18 | Outpatient (CLI) | payer MEDICAID | END | disposition home or self-care (01) | LOC: RADUSWWP 08:43 | PROVIDERS: ATTEND Internal Medicine Clinical Cardiac Electrophysiology | DX: R68.89 Other general symptoms and signs (principal) | CPT/HCPCS: 93922 ==

== ENCOUNTER → 2018-11-05 | Outpatient (CLI) | payer MEDICAID ==
[2018-11-05 18:02] LABS: Anisocytosis Slight; HCT 38.6 % (34.0-46.0); Hypochromasia Moderate; MCH 24.7 pg (25.0-35.0); MCHC 31.2 g/dL (31.0-37.0); MCV 79.2 fL (80.0-100.0); Mean Platelet Volume 7.3; Platelet Count 455 k/uL (150-450); RBC 4.87 m/uL (3.80-5.40); RDW 16.4 % (11.5-15.5); WBC 12.9 k/uL (3.8-10.6)
[2018-11-05 18:11] LABS: African American GFR (CKD) >90 (>60 ml/min/1.73 sqM); Anion Gap 10 mmol/L; Blood Urea Nitrogen 13 mg/dL (7-17); Carbon Dioxide 24 mmol/L (22-30); Chloride 104 mmol/L (98-107); Glucose 92 mg/dL (74-99); Potassium 4.8 mmol/L (3.5-5.1); Sodium 138 mmol/L (137-145)
== END | disposition home or self-care (01) ==
LOC: LABPAT 17:10
PROVIDERS: ATTEND Internal Medicine Clinical Cardiac Electrophysiology
DX: Z01.812 Encounter for preprocedural laboratory examination (principal); I40.0 Infective myocarditis
CPT/HCPCS: 36415; 80051; 82565; 82947; 84520; 85027

== ENCOUNTER 2018-11-14 10:50 | Day surgery (SDC) | payer MEDICAID ==
[~2018-11-14 10:50] MED LIST: ceFAZolin 1,000 MG in SODIUM CHLORIDE 0.9% IRRIGATIO 250 ML IRRIGATION ONE
[2018-11-14] MEDS ORDERED: SODIUM CHLORIDE 0.9% 500 ML 500 ML IV ONE (11:56)
[2018-11-14] MEDS ORDERED: ISOPROTERENOL 250 MCG/1.25 ML SYR IV ONE (12:06)
[2018-11-14] MEDS ORDERED: fentaNYL (PF) 50 MCG/ML 2 ML AMP ONE (12:06)
[2018-11-14] MEDS ORDERED: KETOROLAC 30 MG/ML 1 ML VIAL ONE (12:06)
[2018-11-14] MEDS ORDERED: MIDAZOLAM 2 MG/2 ML VIAL ONE (12:06)
[2018-11-14] MEDS ORDERED: PROPOFOL 10 MG/ML 20 ML VIAL IV ONE (12:06)
[2018-11-14] MEDS ORDERED: LIDOCAINE 1% INJ 10MG/ML (20 ML MDV) SQ ONE (12:56)
[2018-11-14] MEDS ORDERED: ACETAMINOPHEN TAB 325 MG TAB PO PRN (15:38)
[2018-11-14] MEDS ORDERED: HYDROcodone/APAP 5-325MG 1 EACH TAB PO PRN (15:38)
[2018-11-14] MEDS ORDERED: ACETAMINOPHEN IV (For NPO) 1,000 MG in EMPTY BAG 1 BAG IVPB ONE (15:38)
--- NOTE | 2018-11-14 15:52 | P.PRLE ---
RE: AbiolaLindsay James Dear Jenaro Lindsay Culver has a localized myocarditis in the proximal interventricular septum. The PET FDG did not show clear-cut evidence for sarcoidosis. A final diagnosis of chronic myocarditis was made for her chest discomfort Today she underwent a detailed diagnostic EP study with and without Isuprel. No sustained or nonsustained ventricular arrhythmias were induced during the EP study No arrhythmias were induced no supraventricular test induced At this time I would recommend continuing her current medications including irbesartan and diltiazem as well as atorvastatin I will discontinue aspirin I will continue to monitor her as an outpatient and if she ever has an episode of syncope then I may recommend a repeat EP study at that point. Thank you for entrusting me with the care of the patient Warm regards Sincerely Santos Anen
[2018-11-14 17:28] VITALS: BMI 48.9
[2018-11-14] MEDS: SODIUM CHLORIDE 0.9% 1,000 ML IV SCH ×4 (17:31→23:05)
[2018-11-14] MEDS: LACTATED RINGERS 1,000 ML IV SCH (17:31)
[2018-11-14] MEDS ORDERED: ATORVASTATIN 20 MG TAB PO SCH (21:00)
[2018-11-14] MEDS ORDERED: LOSARTAN 50 MG TAB PO SCH (21:00)
--- NOTE | 2018-11-15 01:02 | PCN ---
PROCEDURE NOTE This is a 48-year-old female who presented to the hospital with chest discomfort. In the past, she underwent coronary angiography which showed normal coronary arteries. However, there was a suspicion of myocarditis and she underwent a cardiac MRI, which showed a small area of delayed enhancement in the proximal septum consistent with myocarditis. PET FDG scan did not confirm or suggest definite sarcoidosis. 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 She is brought in for diagnostic EP study for stratification. DESCRIPTION OF PROCEDURE: Patient was brought to the EP lab in a fasting state. Written informed consent was obtained prior to the procedure. The right groin was prepped and draped as per protocol and 3 venous sheaths were placed in the right femoral vein. Via these, 3 diagnostic catheters were positioned (high right atrial catheter, His bundle catheter, RV catheter). The baseline measurements were as follows: Sinus cycle length 716 milliseconds. WV interval 116 milliseconds, QRS 84 milliseconds, QT 360 milliseconds. Baseline AH interval was 69 milliseconds. Baseline HV interval 41 milliseconds. Sinus node recovery times of 600, 500 and 400 milliseconds were 1014, 1081 and 998 milliseconds. Corresponding corrected sinus node recovery times were within normal limits. AV node Wenckebach block 360 milliseconds. VA Wenckebach block greater than 550 milliseconds. There was no evidence for delta waves. No slow pathway conduction. Atrial extra stimulation was performed from the high right atrium. No arrhythmias were induced. In the baseline state, a complete ventricular stimulation protocol was performed from the mid RV septum. Ventricular extrastimulation at 2 drive trains, up to triple extrastimuli was performed without induction of any arrhythmias. Occasional PVCs were induced. No nonsustained arrhythmias induced. Burst stimulation was performed. Long short sequences were performed. No arrhythmias were induced. High-dose Isuprel was used and the later at 2 mcg. Ventricular extra stimulation was performed from the mid RV septum and then later from the RV apex. Ventricular extra stimulation up to 2 drive trains, up to triple extra stimuli were performed. No arrhythmias induced other than very occasional PVCs. Burst stimulation was performed from 400 milliseconds down to 200 milliseconds. No arrhythmias were induced. A long short ventricular extra stimulation sequences were used and no arrhythmias induced. Isuprel was stopped and during recovery, ventricular extra stimulation was once again performed without induction of any arrhythmias. At the end of the study, all catheters were removed and hemostasis was assured. IMPRESSION: A 48-year-old female with localized myocarditis in the proximal septum but the PET FDG was not consistent with sarcoidosis. 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 The EP study was performed for stratification but no sustained or nonsustained ventricular arrhythmias induced. No supraventricular arrhythmias were induced. Conduction intervals were normal. SUGGEST: At this point, expectant observation only along with management of hypertension. If she has a syncopal spell, then either repeat EP study or loop monitor implantation may be considered in the future. She has been asked to continue all her current medications without any change for now. MMODL / IJN: [id number] /
[2018-11-15] MEDS: LACTATED RINGERS 1,000 ML IV SCH (04:50)
[2018-11-15] MEDS: SODIUM CHLORIDE 0.9% 1,000 ML IV SCH (04:50)
[2018-11-15 07:42] VITALS: BP 141/84; PULSE 68; RESP 18; TEMP 98.1
--- NOTE | 2018-11-15 08:02 | P.DS ---
Providers Attending physician: Santos Anne Primary care physician: Jenaro [facility] [facility] Course: Patient is doing well. She denies any chest discomfort dizziness lightheadedness or palpitations. She is walking around comfortably in no groin pain I examined groins no hematoma no swelling no tenderness Blood pressure 141/84 mmHg pulse rate in the 60s afebrile 98.1F Normal heart sounds normal S1 normal S2 no murmurs no gallops. Normal breath sounds no adventitious sounds Abdomen is soft No lower extremity edema Twelve-lead ECG shows sinus rhythm with normal cardiac intervals Impression Localized myocarditis, healed in the upper, proximal septum diagnosed by cardiac MRI. PET FDG did not show any uptake Diagnostic EP study yesterday did not reveal any inducible arrhythmias either sustained or nonsustained Plan Hypertension management Stop aspirin Follow-up next week on either Sunday of with Dr. Rowe/Kathi Plunkett Plan - Discharge Summary Discharge Rx Participant: No New Discharge Prescriptions: Continue Atorvastatin Calcium [Lipitor] 20 mg PO HS Soy Isofla/Blk Cohosh/Mag Bark [Estroven 155 mg Capsule] 155 mg PO DAILY Ascorbic Acid [Vitamin C] 500 mg PO DAILY Irbesartan [Avapro] 150 mg PO HS Cholecalciferol [Vitamin D3 (25 Mcg = 1000 Iu)] 1,000 unit PO DAILY Famotidine [Pepcid] 20 mg PO BID #60 tab Nitroglycerin Sl Tabs [Nitrostat] 0.4 mg SUBLINGUAL Q5M PRN #20 tab PRN Reason: Chest Pain Diltiazem HCl [Diltiazem 24Hr ER (LA)] 240 mg PO QAM Cyanocobalamin (Vitamin B-12) [Vitamin B-12] 1,000 mcg PO DAILY Discontinued Aspirin 81 mg PO DAILY #30 chew Discharge Medication List Ascorbic Acid [Vitamin C] 500 mg PO DAILY 06/06/18 [History] Atorvastatin Calcium [Lipitor] 20 mg PO HS 06/06/18 [History] Cholecalciferol [Vitamin D3 (25 Mcg = 1000 Iu)] 1,000 unit PO DAILY 06/06/18 [History] Irbesartan [Avapro] 150 mg PO HS 06/06/18 [History] Soy Isofla/Blk Cohosh/Mag Bark [Estroven 155 mg Capsule] 155 mg PO DAILY 06/06/18 [History] Famotidine [Pepcid] 20 mg PO BID #60 tab 06/09/18 [Rx] Nitroglycerin Sl Tabs [Nitrostat] 0.4 mg SUBLINGUAL Q5M PRN #20 tab 06/09/18 [Rx] Cyanocobalamin (Vitamin B-12) [Vitamin B-12] 1,000 mcg PO DAILY 11/11/18 [History] Diltiazem HCl [Diltiazem 24Hr ER (LA)] 240 mg PO QAM 11/11/18 [History] Patient Instructions/Handouts: Cardiac Ablation (DC) Activity/Diet/Wound Care/Special Instructions: Post EP study - Ablation instructions 1. Keep access sites dry for 2 days. 2. No heavy lifting or straining for 2 days. 3. Avoid bending the hips repeatedly for 2 days. 4. You may go up and down stairs slowly Call if the following is noted 1. Bleeding, increasing swelling or pain at the access sites. 2. Increasing chest discomfort, especially upon taking a deep breath. 3. Increasing shortness of breath, at rest or with exertion. 4. Undue cough / phlegm 5. Difficulty or pain while swallowing. 6. Pain or change in color in the extremities. 7. Fever, chills, rigors. 8. Increasing headache or neurologic symptoms. 9. Dizziness, fainting, palpitations Continue all home medications aside from aspirin, patient may stop aspirin as it is not indicated at this time Follow-up at the office in 1 week
[2018-11-15] MEDS ORDERED: DILTIAZEM CD 240 MG CAP.ER.24H PO SCH (09:00)
== END 2018-11-15 09:57 ==
LOC: CATHEP 10:50 → 1SOBS 15:32 → CATHEP 11-15 09:57
PROVIDERS: ATTEND Internal Medicine Clinical Cardiac Electrophysiology
DX: Z79.82 Long term (current) use of aspirin (principal); Z79.899 Other long term (current) drug therapy; E66.01 Morbid (severe) obesity due to excess calories; Z68.43 Body mass index [BMI] 50.0-59.9, adult; I40.0 Infective myocarditis
CPT/HCPCS: 93623; 93620; C1894; C1769 ×2; C1730 ×2; J2250; J2001; J3010; J1885; J2704

== ENCOUNTER → 2019-01-31 | Outpatient (CLI) | payer MEDICAID ==
--- NOTE | 2019-01-31 11:59 | US ---
EXAMINATION TYPE: US abdomen complete DATE OF EXAM: 01/31/2019 COMPARISON: NONE CLINICAL HISTORY: R10.11 Rt upper Quad Pain. RUQ pain for 2 months EXAM MEASUREMENTS: Liver Length: 14.9 cm Gallbladder Wall: 0.3 cm CBD: 0.3 cm Spleen: 8.2 cm Right Kidney: 10.0 x 4.3 x 4.9 cm Left Kidney: 10.4 x 5.8 x 4.5 cm Pancreas: Tail obscured by overlying bowel gas Liver: appears wnl Gallbladder: no evidence of stones Evidence for sonographic Dong's sign: yes CBD: wnl Spleen: appears wnl Right Kidney: no evidence of hydronephrosis Left Kidney: no evidence of hydronephrosis Upper IVC: wnl Abd Aorta: visualized portions appear wnl The liver is homogenous. The intrahepatic portion of the IVC and proximal abdominal aorta are within normal limits. There is no evidence of cholelithiasis. Common bile duct is unremarkable. The visu alized portions of the pancreas are homogenous. The spleen is unremarkable. Kidneys are symmetric a nd free of hydronephrosis. No renal lesions are seen. IMPRESSION: Overall unremarkable abdominal ultrasound other than a positive sonographic Dong sign. No sonographic evidence of cholelithiasis nor acute cholecystitis. Given the focal right upper quadra nt pain HIDA scan with CCK could evaluate for biliary dyskinesia or chronic cholecystitis.
== END | disposition home or self-care (01) ==
LOC: RADUSWWP 10:15
PROVIDERS: ATTEND Family Medicine
DX: R10.11 Right upper quadrant pain (principal)
CPT/HCPCS: 76700

== ENCOUNTER → 2020-01-02 | Outpatient (CLI) | payer MEDICAID ==
[2020-01-02 11:54] LABS: Anisocytosis Slight; Basophils % (A) 0 %; Eosinophils # (A) 0.3 k/uL (0-0.7); Eosinophils % (A) 4 %; HCT 39.9 % (34.0-46.0); HGB 12.3 gm/dL (11.4-16.0); Hypochromasia Slight; Lymphocytes # (A) 1.9 k/uL (1.0-4.8); Lymphocytes % (A) 20 %; MCH 25.2 pg (25.0-35.0); MCHC 30.7 g/dL (31.0-37.0); MCV 81.9 fL (80.0-100.0); Mean Platelet Volume 7.6; Monocytes # (A) 0.6 k/uL (0-1.0); Monocytes % (A) 7 %; Neutrophils # (A) 6.4 k/uL (1.3-7.7); Neutrophils % (A) 67 %; Platelet Count 374 k/uL (150-450); RBC 4.87 m/uL (3.80-5.40); RDW 16.2 % (11.5-15.5); WBC 9.6 k/uL (3.8-10.6)
[2020-01-02 17:23] LABS: ALT 20 U/L (8-44); AST 17 U/L (13-35); African American GFR (CKD) 85.8 (60.0-200.0); Albumin/Globulin Ratio 1.75 (1.60-3.17); Alkaline Phosphatase 109 U/L (41-126); BUN/Creat Ratio 17.78 Ratio (12.00-20.00); Calcium 9.2 mg/dL (8.7-10.3); Carbon Dioxide 22.8 mmol/L (21.6-31.8); Chloride 103 mmol/L (96-109); Chol/HDL Ratio 2.29; Cholesterol 142 mg/dL (0-200); Globulin 2.4 g/dL (1.6-3.3); Glucose 83 mg/dL (70-110); Potassium 4.9 mmol/L (3.5-5.5); Sodium 135 mmol/L (135-145); Total Bilirubin 0.5 mg/dL (0.3-1.2); Total Protein 6.6 g/dL (6.2-8.2); Triglycerides <50.0 mg/dL (0.0-149.0)
== END | disposition home or self-care (01) ==
LOC: LABWHC1 10:43
PROVIDERS: ATTEND Physician Assistant Medical
DX: Z00.00 Encounter for general adult medical examination without abnormal findings (principal); E55.9 Vitamin D deficiency, unspecified
CPT/HCPCS: 36415; 80053; 80061; 82306; 84443; 85025

== ENCOUNTER → 2020-02-18 | Outpatient (CLI) | payer MEDICAID ==
--- NOTE | 2020-02-18 19:11 | CONS ---
CONSULTATION DATE OF SERVICE: 02/18/2020 This patient is a 49-year-old lady who has been evaluated in the sleep center for possible obstructive sleep apnea-hypopnea syndrome. HISTORY OF PRESENT ILLNESS/SLEEP-WAKE EVALUATION: Patient's usual sleep schedule on weekdays is from 8:30 or 9 p.m. until 5 or 5:15 a.m. On weekends she sleeps from between 9 and 11 p.m. until between 7 and 9 a.m. Sometimes she has problems with falling asleep, although there is no TV in the bedroom. She prefers to sleep on the stomach position. She snores and has witnessed episodes by her of stopped breathing during sleep. She grinds her teeth. She wakes up from sleep up to 4 times with episodes of panic attack, gasping for air, and up to 2 times with nocturia. In the morning the patient wakes up tired, has episodes of anxiety. Cassandra Sleepiness Scale is 3. Usually she does not take any naps during the day. No history of hypnagogic hallucinations, sleep paralysis or cataplexy. PAST MEDICAL HISTORY: Positive for hypertension, hyperlipidemia, acid reflux and 2 episodes of myocarditis in 2014 and 2018 of unknown reason. PAST SURGICAL HISTORY: Tonsillectomy and adenoidectomy. Appendectomy. C-sections x2. MEDICATIONS: 1. Diltiazem 240 mg once a day. 2. Irbesartan 150 mg 1-1/2 tablet a day. 3. Atorvastatin 20 mg once a day. 4. Famotidine 20 mg twice a day. SOCIAL HISTORY: Negative for smoking or using alcohol. FAMILY HISTORY: Diabetes, bladder carcinoma in her father. REVIEW OF SYSTEMS: Multiple awakenings from sleep, snoring, witnessed episodes of stopped breathing during sleep. PHYSICAL EXAMINATION: GENERAL: A pleasant lady without distress. VITAL SIGNS: BP 146/73, HR 81, RR 15, height 4 feet 11-3/4 inches, weight 254.6 pounds, BMI 50.1, temperature 98.6, oxygen saturation at room air 97%. HEENT: PERRLA, EOMI. Evaluation of oropharynx showed tongue protrudes midline. Extremely low position of soft palate. Mallampati IV. NECK: Supple. No JVD. Thyroid is not palpable. Wide neck measuring 16 inches in circumference. LUNGS: Clear to percussion and to auscultation. Good air exchange. No wheezing or rhonchi. HEART: S1, S2 regular. No murmurs, gallops or rubs. ABDOMEN: Obese. EXTREMITIES: No clubbing or cyanosis. [employer]: Awake, alert, and oriented X3. Cranial nerves 2 to 7 intact. There is no fasciculation or atrophy. noted. No focal deficits observed. IMPRESSION: 1. Loud snoring, witnessed episodes of stopped breathing during sleep, extremely low position of soft palate, wide neck; obstructive sleep apnea-hypopnea syndrome. 2. Morbid obesity. BMI 50.1. 3. Hypertension. 4. Hyperlipidemia. 5. Acid reflux. 6. History of myocarditis in 2015 and 2019. 7. Status post tonsillectomy and adenoidectomy. 8. Status post appendectomy. 9. Status post C-sections x2. PLAN: 1. Polysomnography for evaluation of patient's breathing during sleep. 2. CPAP/BiPAP titration if sleep study confirms obstructive sleep apnea-hypopnea syndrome. 3. Preferable position during sleep on the side. 4. No driving if patient feels any sleepiness. 5. I will see patient for follow up visit to explain results of testing and following plan. Thank you very much for referring this patient for consultation. Sincerely, Maxx Hernandez MD, PhD, FAASM Diplomat of [employer] [facility] [place] MMSHERICE / ANA LAURA: [id number] /
== END | disposition home or self-care (01) ==
LOC: SLEEP 16:57
PROVIDERS: ATTEND Internal Medicine
DX: G47.33 Obstructive sleep apnea (adult) (pediatric) (principal); E78.5 Hyperlipidemia, unspecified; I10 Essential (primary) hypertension; K21.9 Gastro-esophageal reflux disease without esophagitis; E66.01 Morbid (severe) obesity due to excess calories; Z68.43 Body mass index [BMI] 50.0-59.9, adult; Z86.79 Personal history of other diseases of the circulatory system; Z98.890 Other specified postprocedural states; Z90.09 Acquired absence of other part of head and neck; Z79.899 Other long term (current) drug therapy
CPT/HCPCS: 99211

== ENCOUNTER → 2020-03-04 | Outpatient (CLI) | payer MEDICAID ==
--- NOTE | 2020-03-08 09:02 | MM ---
Reason for exam: screening (asymptomatic). Last mammogram was performed 1 year and 7 months ago. History: Took hormonal contraceptives for 6 years beginning at age 34. Physical Findings: A clinical breast exam by your physician is recommended on an annual basis and results should be correlated with mammographic findings. MG 3D Screening Mammo W/Cad Bilateral CC and MLO view(s) were taken. Prior study comparison: August 02, 2018, bilateral MG 3d screening mammo w/cad. October 10, 2016, bilateral MG 3d screening mammo w/cad. There are scattered fibroglandular densities. There is chronic nodularity in the right breast anteriorly. No significant changes when compared with prior studies. ASSESSMENT: Benign, BI-RAD 2 RECOMMENDATION: Routine screening mammogram of both breasts in 1 year.
== END | disposition home or self-care (01) ==
LOC: RADMAMWWP 14:57
PROVIDERS: ATTEND Family Medicine
DX: Z12.31 Encounter for screening mammogram for malignant neoplasm of breast (principal)
CPT/HCPCS: 77063; 77067

== ENCOUNTER → 2020-03-12 | Outpatient (CLI) | payer MEDICAID ==
--- NOTE | 2020-03-12 12:11 | ECHOF ---
Referral Reason:chest pain R07.9 MEASUREMENTS -------- HEIGHT: 152.4 cm WEIGHT: 114.8 kg BP: IVSd: 0.8 cm (0.6 - 1.1) LVIDd: 3.6 cm (3.9 - 5.3) LVPWd: 1.0 cm (0.6 - 1.1) IVSs: 1.3 cm LVIDs: 3.2 cm LVPWs: 1.1 cm LA Diam: 3.6 cm (2.7 - 3.8) LAESV Index (A-L): 22.85 ml/m Ao Diam: 2.6 cm (2.0 - 3.7) AV Cusp: 1.8 cm (1.5 - 2.6) MV EXCURSION: 20.347 mm (> 18.000) MV EF SLOPE: 119 mm/s (70 - 150) EPSS: 0.6 cm MV E Hiram: 0.65 m/s MV DecT: 161 ms MV A Hiram: 0.79 m/s MV E/A Ratio: 0.82 RAP: 5.00 mmHg RVSP: 22.92 mmHg FINDINGS -------- Sinus rhythm. This was a technically adequate study. Morbid Obesity LV size, wall thickness and systolic function are normal, with an EF greater than 55%. The left alka tricular size is normal. The right ventricle is normal in size. The left atrial size is normal. The right atrial size is normal. The aortic valve is trileaflet, and appears structurally normal. No aortic stenosis or regurgitation. Mild mitral regurgitation is present. Mild tricuspid regurgitation present. Right ventricular systolic pressure is normal at < 35 mmHg. There is no pulmonic regurgitation present. The aortic root size is normal. There is no pericardial effusion. CONCLUSIONS -------- 1. LV size, wall thickness and systolic function are normal, with an EF greater than 55%. 2. The left ventricular size is normal. 3. The right ventricle is normal in size. 4. The left atrial size is normal. 5. The right atrial size is normal. 6. Mild mitral regurgitation is present. 7. Mild tricuspid regurgitation present. 8. The aortic root size is normal. 9. There is no pericardial effusion. RN ORTHOPEDIC: Jessica Erwin RDCS
== END | disposition home or self-care (01) ==
LOC: RADECHMAIN 11:13
PROVIDERS: ATTEND Internal Medicine Clinical Cardiac Electrophysiology
DX: I08.1 Rheumatic disorders of both mitral and tricuspid valves (principal); R00.2 Palpitations; I40.9 Acute myocarditis, unspecified
CPT/HCPCS: 93270; 93306

== ENCOUNTER 2020-03-30 07:44 | Day surgery (SDC) | payer MEDICAID ==
[2020-03-24 16:07] VITALS: BMI 49.2
[~2020-03-30 07:44] MED LIST changes: +LACTATED RINGERS 1,000 ML IV SCH; +LIDOCAINE 1% (10MG/ML) FOR IV START INTRADERMA PRN; -ceFAZolin 1,000 MG in SODIUM CHLORIDE 0.9% IRRIGATIO 250 ML IRRIGATION ONE
[2020-03-30 08:10] VITALS: RESP 16; TEMP 97.4
[2020-03-30] MEDS ORDERED: PROPOFOL 10 MG/ML 20 ML VIAL IV ONE (08:50)
--- NOTE | 2020-03-30 08:52 | P.GSHP ---
History of Present Illness H&P Date: 03/30/20 Chief Complaint: Colon cancer screening Patient here today for colonoscopy. She has not had 1 previously. No bowel complaints. No family history of colon cancer Past Medical History Past Medical History: Hyperlipidemia, Hypertension Additional Past Medical History / Comment(s): Chronic Myocarditis. Heartburn. History of Any Multi-Drug Resistant Organisms: None Reported Past Surgical History: Adenoidectomy, Appendectomy, Section, Heart Catheterization, Tonsillectomy Additional Past Surgical History / Comment(s): Section X2. Past Anesthesia/Blood Transfusion Reactions: No Reported Reaction Additional Past Anesthesia/Blood Transfusion Reaction / Comment(s): Pt has never recieved blood. Father difficult to wake up from anesthesia. Past Psychological History: No Psychological Hx Reported Smoking Status: Never smoker Past Alcohol Use History: Rare Past Drug Use History: None Reported - Past Family History Sister(s) Family Medical History: Cancer Additional Family Medical History / Comment(s): Skin cancer. Father Family Medical History: Cancer, COPD, Coronary Artery Disease (CAD) Additional Family Medical History / Comment(s): Bladder cancer, 3 vessel CABH. Mother Family Medical History: Hypertension Additional Family Medical History / Comment(s): Mother is 70 yrs old. Medications and Allergies Home Medications Medication Instructions Recorded Confirmed Type Atorvastatin Calcium [Lipitor] 20 mg PO HS 06/06/18 03/24/20 History Cholecalciferol [Vitamin D3 (25 500 unit PO DAILY 06/06/18 03/24/20 History Mcg = 1000 Iu)] Irbesartan [Avapro] 75 mg PO HS 06/06/18 03/24/20 History Soy Isofla/Blk Cohosh/Mag Bark 155 mg PO DAILY 06/06/18 03/24/20 History [Estroven 155 mg Capsule] Famotidine [Pepcid] 20 mg PO BID #60 tab 06/09/18 03/24/20 Rx Cyanocobalamin (Vitamin B-12) 5,000 mcg PO DAILY 11/11/18 03/24/20 History [Vitamin B-12] Diltiazem HCl [Diltiazem HCl 24Hr 240 mg PO QAM 11/11/18 03/24/20 History ER (LA)] Calcium 500 mg PO DAILY 03/24/20 03/24/20 History Irbesartan [Avapro] 150 mg PO QAM 03/24/20 03/24/20 History Multivit-Min/FA/Lycopen/Lutein 1 each PO DAILY 03/24/20 03/24/20 History [Centrum Silver Tablet] Allergies Allergy/AdvReac Type Severity Reaction Status Date / Time No Known Allergies Allergy Verified 03/30/20 08:13 Surgical - Exam Vital Signs Temp Pulse Resp BP Pulse Ox 97.4 F L 93 16 162/77 99 03/30/20 08:09 03/30/20 08:09 03/30/20 08:09 03/30/20 08:09 03/30/20 08:09 Physical exam: General: Well-developed, well-nourished HEENT: Normocephalic, sclerae nonicteric Abdomen: Nontender, nondistended Extremities: No edema Neuro: Alert and oriented Assessment and Plan (1) Colon cancer screening Narrative/Plan: Will proceed with colonoscopy at this time Current Visit: Yes Status: Acute Code(s): Z12.11 - ENCOUNTER FOR SCREENING FOR MALIGNANT NEOPLASM OF COLON SNOMED Code(s): 515394002
--- NOTE | 2020-03-30 09:10 | P.PCN ---
Date of Procedure: 03/30/20 Procedure(s) Performed: PREOPERATIVE DIAGNOSIS: Colon cancer screening POSTOPERATIVE DIAGNOSIS: Normal exam PROCEDURE: Colonoscopy ANESTHESIA: MAC SURGEON: Filemon Reeves M.D. SPECIMENS: None ENDOSCOPIC PROCEDURE: The patient was placed on the endoscopy table in the left decubitus position. The Olympus colonoscope was inserted into the anus and passed under direct visualization to the base of the cecum. The appendiceal orifice was visualized. From that point the scope was slowly withdrawn inspecti ng all surfaces carefully. There were no neoplastic inflammatory or polypoid lesions throughout the cecum, ascending, transverse, descending, sigmoid and rectum. There was no visible diverticulosis noted. Digital rectal examination was normal. The patient was taken to the recovery room in stable condition per anesthesia guidelines. RECOMMENDATIONS: Resume diet. Follow-up colonoscopy 10 years.
[2020-03-30 09:29] VITALS: BP 118/78; PULSE 70
== END 2020-03-30 09:51 | disposition home or self-care (01) ==
LOC: ORWHC2ENDO 07:44
PROVIDERS: ATTEND Surgery
DX: Z12.11 Encounter for screening for malignant neoplasm of colon (principal); E78.5 Hyperlipidemia, unspecified; K21.9 Gastro-esophageal reflux disease without esophagitis; I11.9 Hypertensive heart disease without heart failure; Z79.899 Other long term (current) drug therapy; Z98.891 History of uterine scar from previous surgery; Z98.890 Other specified postprocedural states; Z80.8 Family history of malignant neoplasm of other organs or systems; Z82.49 Family history of ischemic heart disease and other diseases of the circulatory system; Z80.52 Family history of malignant neoplasm of bladder; Z82.5 Family history of asthma and other chronic lower respiratory diseases
CPT/HCPCS: 81025; J2704; G0121

== ENCOUNTER 2020-10-12 04:12 | Emergency (ER) | payer MEDICAID ==
[2020-10-12 04:27] VITALS: TEMP 99
[2020-10-12] MEDS ORDERED: FAMOTIDINE 20 MG/2 ML VIAL IV STA (04:56)
[2020-10-12] MEDS ORDERED: predniSONE 20 MG TAB PO STA (04:56)
--- NOTE | 2020-10-12 05:00 | ED ---
Skin/Abscess/FB HPI - General Chief complaint: Skin/Abscess/Foreign Body Stated complaint: poss allergic reaction Time Seen by Provider: 10/12/20 04:29 Source: patient Mode of arrival: ambulatory Limitations: no limitations - History of Present Illness Initial comments: This patient is a 49-year-old woman who presents with itching to the palms and soles of the feet. Also along the hairline. The patient states that this had started on Sunday. She did have a dose of the shingles vaccine on Sunday. Patient states that she tried Zyrtec and then Benadryl without much change in the symptoms. She is not having any cough or dyspnea. No nausea or vomiting. She did have one watery bowel movement yesterday. Onset/Timin -: days(s) Location: L hand, R hand, L foot, R foot Quality: other (Itching) Consistency: constant Improves with: none Worsens with: none Context: new medication - Related Data Home Medications Medication Instructions Recorded Confirmed Atorvastatin Calcium [Lipitor] 20 mg PO HS 06/06/18 03/24/20 Cholecalciferol [Vitamin D3 (25 500 unit PO DAILY 06/06/18 03/24/20 Mcg = 1000 Iu)] Irbesartan [Avapro] 75 mg PO HS 06/06/18 03/24/20 Soy Isofla/Blk Cohosh/Mag Bark 155 mg PO DAILY 06/06/18 03/24/20 [Estroven 155 mg Capsule] Cyanocobalamin (Vitamin B-12) 5,000 mcg PO DAILY 11/11/18 03/24/20 [Vitamin B-12] Diltiazem HCl [Diltiazem HCl 24Hr 240 mg PO QAM 11/11/18 03/24/20 ER (LA)] Calcium 500 mg PO DAILY 03/24/20 03/24/20 Irbesartan [Avapro] 150 mg PO QAM 03/24/20 03/24/20 Multivit-Min/FA/Lycopen/Lutein 1 each PO DAILY 03/24/20 03/24/20 [Centrum Silver Tablet] Previous Rx's Medication Instructions Recorded Famotidine [Pepcid] 20 mg PO BID #60 tab 06/09/18 predniSONE 60 mg PO DAILY #30 tab 10/12/20 Allergies Allergy/AdvReac Type Severity Reaction Status Date / Time No Known Allergies Allergy Verified 10/12/20 04:27 Review of Systems ROS Statement: Those systems with pertinent positive or pertinent negative responses have been documented in the HPI. ROS Other: All systems not noted in ROS Statement are negative. Constitutional: Denies: fever, chills ENT: Denies: throat pain, congestion Respiratory: Denies: cough, dyspnea, wheezes Cardiovascular: Denies: chest pain, palpitations Gastrointestinal: Reports: as per HPI, diarrhea. Denies: abdominal pain, nausea, vomiting Genitourinary: Denies: dysuria Skin: Reports: as per HPI, change in color, pruritus. Denies: rash, lesions Neurological: Denies: headache, weakness Past Medical History Past Medical History: Hyperlipidemia, Hypertension Additional Past Medical History / Comment(s): 2015 Probable viral myocarditis. History of Any Multi-Drug Resistant Organisms: None Reported Past Surgical History: Adenoidectomy, Appendectomy, Section, Tonsillectomy Additional Past Surgical History / Comment(s): x 2. Past Anesthesia/Blood Transfusion Reactions: No Reported Reaction Additional Past Anesthesia/Blood Transfusion Reaction / Comment(s): Pt has never recieved blood. Past Psychological History: No Psychological Hx Reported Smoking Status: Never smoker Past Alcohol Use History: Rare Past Drug Use History: None Reported - Past Family History Sister(s) Family Medical History: Cancer Additional Family Medical History / Comment(s): Skin cancer. Father Family Medical History: Cancer, COPD, Coronary Artery Disease (CAD) Additional Family Medical History / Comment(s): Bladder cancer, 3 vessel CABH. Mother Family Medical History: Hypertension Additional Family Medical History / Comment(s): Mother is 70 yrs old. General Exam Limitations: no limitations General appearance: alert, in no apparent distress Head exam: Present: atraumatic, normocephalic Eye exam: Present: normal appearance. Absent: scleral icterus, conjunctival injection ENT exam: Present: normal oropharynx Respiratory exam: Present: normal lung sounds bilaterally. Absent: respiratory distress, wheezes, rales, rhonchi, stridor Cardiovascular Exam: Present: regular rate, normal rhythm, normal heart sounds. Absent: systolic murmur, diastolic murmur, rubs, gallop GI/Abdominal exam: Present: soft. Absent: distended, tenderness, guarding, rebound, rigid, mass Extremities exam: Present: normal inspection, normal capillary refill. Absent: pedal edema, calf tenderness Back exam: Present: normal inspection. Absent: CVA tenderness (R), CVA tenderness (L) Neurological exam: Present: alert Skin exam: Present: warm, dry, intact, normal color. Absent: rash Course Vital Signs 10/12/20 04:22 Temperature 99 F Pulse Rate 110 H Respiratory 20 Rate Blood Pressure 160/98 O2 Sat by Pulse 98 Oximetry Medical Decision Making - Lab Data Result diagrams: 10/12/20 05:13 10/12/20 05:13 Lab Results 10/12/20 10/12/20 Range/Units 05:13 05:13 WBC 10.0 (3.8-10.6) k/uL RBC 4.99 (3.80-5.40) m/uL Hgb 13.1 (11.4-16.0) gm/dL Hct 40.1 (34.0-46.0) % MCV 80.2 (80.0-100.0) fL MCH 26.3 (25.0-35.0) pg MCHC 32.8 (31.0-37.0) g/dL RDW 16.3 H (11.5-15.5) % Plt Count 365 (150-450) k/uL MPV 7.0 Neutrophils % 79 % Lymphocytes % 13 % Monocytes % 5 % Eosinophils % 2 % Basophils % 0 % Neutrophils # 7.8 H (1.3-7.7) k/uL Lymphocytes # 1.3 (1.0-4.8) k/uL Monocytes # 0.5 (0-1.0) k/uL Eosinophils # 0.2 (0-0.7) k/uL Basophils # 0.0 (0-0.2) k/uL Anisocytosis Slight Sodium 138 (137-145) mmol/L Potassium 4.8 (3.5-5.1) mmol/L Chloride 108 H (98-107) mmol/L Carbon Dioxide 22 (22-30) mmol/L Anion Gap 8 mmol/L BUN 19 H (7-17) mg/dL Creatinine 0.73 (0.52-1.04) mg/dL Est GFR (CKD-EPI)AfAm >90 (>60 ml/min/1.73 sqM) Est GFR (CKD-EPI)NonAf >90 (>60 ml/min/1.73 sqM) Glucose 102 H (74-99) mg/dL Calcium 9.0 (8.4-10.2) mg/dL Total Bilirubin 0.3 (0.2-1.3) mg/dL AST 26 (14-36) U/L ALT 17 (4-34) U/L Alkaline Phosphatase 114 (38-126) U/L Total Protein 6.9 (6.3-8.2) g/dL Albumin 3.9 (3.5-5.0) g/dL Disposition Clinical Impression: Urticaria Disposition: HOME SELF-CARE Condition: Good Instructions (If sedation given, give patient instructions): Urticaria (ED) Prescriptions: predniSONE 60 mg PO DAILY #30 tab Is patient prescribed a controlled substance at d/c from ED?: No Referrals: Jenaro Love DO [Primary Care Provider] - 1-2 days
[2020-10-12 05:24] LABS: Anisocytosis Slight; Basophils % (A) 0 %; Eosinophils # (A) 0.2 k/uL (0-0.7); Eosinophils % (A) 2 %; HCT 40.1 % (34.0-46.0); HGB 13.1 gm/dL (11.4-16.0); Lymphocytes # (A) 1.3 k/uL (1.0-4.8); Lymphocytes % (A) 13 %; MCH 26.3 pg (25.0-35.0); MCHC 32.8 g/dL (31.0-37.0); MCV 80.2 fL (80.0-100.0); Monocytes # (A) 0.5 k/uL (0-1.0); Monocytes % (A) 5 %; Neutrophils # (A) 7.8 k/uL (1.3-7.7); Neutrophils % (A) 79 %; Platelet Count 365 k/uL (150-450); RBC 4.99 m/uL (3.80-5.40); RDW 16.3 % (11.5-15.5)
[2020-10-12 05:32] LABS: ALT 17 U/L (4-34); African American GFR (CKD) >90 (>60 ml/min/1.73 sqM); Albumin 3.9 g/dL (3.5-5.0); Anion Gap 8 mmol/L; Blood Urea Nitrogen 19 mg/dL (7-17); Carbon Dioxide 22 mmol/L (22-30); Chloride 108 mmol/L (98-107); Glucose 102 mg/dL (74-99); Non-African American GFR(CKD) >90 (>60 ml/min/1.73 sqM); Sodium 138 mmol/L (137-145); Total Bilirubin 0.3 mg/dL (0.2-1.3); Total Protein 6.9 g/dL (6.3-8.2)
[2020-10-12 05:33] LABS: AST 26 U/L (14-36); Alkaline Phosphatase 114 U/L (38-126); Potassium 4.8 mmol/L (3.5-5.1)
[2020-10-12 06:07] VITALS: BP 144/81; PULSE 96; RESP 16
== END 2020-10-12 06:00 | disposition home or self-care (01) ==
LOC: EC 04:12
DX: L50.9 Urticaria, unspecified (principal); R19.7 Diarrhea, unspecified; I10 Essential (primary) hypertension; E78.5 Hyperlipidemia, unspecified
CPT/HCPCS: 36415; 80053; 85025; 99284; 96374; J7512

== ENCOUNTER 2020-10-21 01:57 | Emergency (ER) | payer MEDICAID ==
[2020-10-21 02:03] VITALS: TEMP 98.7
[2020-10-21 02:19] VITALS: BP 149/75; PULSE 100; RESP 18
[2020-10-21] MEDS ORDERED: FAMOTIDINE 20 MG TAB PO STA (02:28)
[2020-10-21] MEDS ORDERED: methylPREDNISolone SOD SUCCI 125 MG/2 ML VIAL IM ONE (02:28)
[2020-10-21] MEDS ORDERED: hydrOXYzine pamoate 25 MG CAP PO STA (02:28)
--- NOTE | 2020-10-21 02:29 | ED ---
Allergic Reaction HPI - General Chief complaint: Allergic Reaction Stated complaint: Allergic Reaction Time Seen by Provider: 10/21/20 02:10 Source: patient Mode of arrival: ambulatory Limitations: no limitations - History of Present Illness Initial Comments: 50-year-old female patient presents to the emergency department today for evaluation of rash to her scalp, bilateral hands, bilateral feet. States this started a couple weeks ago after receiving her second dose of the shingles vaccine. States she was evaluated and started on steroids which did completely a few days ago. States her symptoms seem to be worsening. States it is very itchy. Denies any drainage from the lesions. Denies any blisters. Denies fever or chills. States he does have some swelling to her upper lip. Denies any tongue or throat swelling. Denies chest tightness or shortness of breath. Is taking Claritin daily no other medications at this time. - Related Data Home Medications Medication Instructions Recorded Confirmed Atorvastatin Calcium [Lipitor] 20 mg PO HS 06/06/18 03/24/20 Cholecalciferol [Vitamin D3 (25 500 unit PO DAILY 06/06/18 03/24/20 Mcg = 1000 Iu)] Irbesartan [Avapro] 75 mg PO HS 06/06/18 03/24/20 Soy Isofla/Blk Cohosh/Mag Bark 155 mg PO DAILY 06/06/18 03/24/20 [Estroven 155 mg Capsule] Cyanocobalamin (Vitamin B-12) 5,000 mcg PO DAILY 11/11/18 03/24/20 [Vitamin B-12] Diltiazem HCl [Diltiazem HCl 24Hr 240 mg PO QAM 11/11/18 03/24/20 ER ([place])] Calcium 500 mg PO DAILY 03/24/20 03/24/20 Irbesartan [Avapro] 150 mg PO QAM 03/24/20 03/24/20 Multivit-Min/FA/Lycopen/Lutein 1 each PO DAILY 03/24/20 03/24/20 [Centrum Silver Tablet] Previous Rx's Medication Instructions Recorded Famotidine [Pepcid] 20 mg PO BID #60 tab 06/09/18 predniSONE 60 mg PO DAILY #30 tab 10/12/20 Famotidine [Pepcid] 20 mg PO DAILY #5 tablet 10/21/20 hydrOXYzine pamoate [Vistaril] 25 mg PO TID PRN #15 cap 10/21/20 predniSONE 50 mg PO DAILY #5 tablet 10/21/20 Allergies Allergy/AdvReac Type Severity Reaction Status Date / Time No Known Allergies Allergy Verified 10/21/20 02:03 Review of Systems ROS Statement: Those systems with pertinent positive or pertinent negative responses have been documented in the HPI. ROS Other: All systems not noted in ROS Statement are negative. 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 History of Any Multi-Drug Resistant Organisms: None Reported Past Surgical History: Adenoidectomy, Appendectomy, Section, Tonsillectomy Additional Past Surgical History / Comment(s): x 2. Past Anesthesia/Blood Transfusion Reactions: No Reported Reaction Additional Past Anesthesia/Blood Transfusion Reaction / Comment(s): Pt has never recieved blood. Past Psychological History: No Psychological Hx Reported Smoking Status: Never smoker Past Alcohol Use History: Rare Past Drug Use History: None Reported - Past Family History Sister(s) Family Medical History: Cancer Additional Family Medical History / Comment(s): Skin cancer. Father Family Medical History: Cancer, COPD, Coronary Artery Disease (CAD) Additional Family Medical History / Comment(s): Bladder cancer, 3 vessel CABH. Mother Family Medical History: Hypertension Additional Family Medical History / Comment(s): Mother is 70 yrs old. General Exam Limitations: no limitations General appearance: alert, in no apparent distress, other (This is a well- developed, well-nourished adult female patient in no acute distress. Vital signs upon presentation are temperature 98.7F, pulse 112, respirations 22, blood pressure 153/80, pulse ox 90% on room air.) Respiratory exam: Present: normal lung sounds bilaterally. Absent: respiratory distress, wheezes, rales, rhonchi, stridor Cardiovascular Exam: Present: regular rate, normal rhythm, normal heart sounds. Absent: systolic murmur, diastolic murmur, rubs, gallop, clicks Neurological exam: Present: alert, oriented X3, CN II-XII intact Psychiatric exam: Present: normal affect, normal mood Skin exam: Present: warm, dry, intact, normal color, rash (Patient has urticarial type rash noted to the scalp, face, bilateral hands and feet. Lesions are non-petechial, nonvesicular. Erythematous. No drainage.) Course Vital Signs 10/21/20 10/21/20 01:59 02:11 Temperature 98.7 F 98.7 F Pulse Rate 112 H 100 Respiratory 22 18 Rate Blood Pressure 153/80 149/75 O2 Sat by Pulse 100 100 Oximetry Medical Decision Making - Medical Decision Making 50-year-old female patient presents to the emergency department today for evaluation of rash. Physical examination did reveal urticarial type rash noted to the scalp, hands, feet. She was started on steroids given a prescription for Pepcid and Vistaril. She is instructed to follow-up with her primary care physician for recheck in 1-2 days. Return parameters discussed in detail. She verbalizes understanding and agrees with this plan. My attending is Dr. Vega. Disposition Clinical Impression: Allergic reaction Disposition: HOME SELF-CARE Condition: Good Instructions (If sedation given, give patient instructions): General Allergic Reaction (ED) Additional Instructions: Take medications as directed. Follow up with your primary care physician for recheck as soon as possible. Return to the emergency department for any new, worsening, or concerning symptoms. Prescriptions: Famotidine [Pepcid] 20 mg PO DAILY #5 tablet predniSONE 50 mg PO DAILY #5 tablet hydrOXYzine pamoate [Vistaril] 25 mg PO TID PRN #15 cap PRN Reason: Itching Is patient prescribed a controlled substance at d/c from ED?: No Referrals: Jenaro Love DO [Primary Care Provider] - 1-2 days Time of Disposition: 02:29
== END 2020-10-21 02:44 | disposition home or self-care (01) ==
LOC: EC 01:57
DX: L50.0 Allergic urticaria (principal); I10 Essential (primary) hypertension; E78.5 Hyperlipidemia, unspecified
CPT/HCPCS: 99284; 96372; J2930

== ENCOUNTER → 2021-02-10 | Outpatient (CLI) | payer MEDICAID ==
[2021-02-10 19:16] LABS: Basophils # (A) 0.05 X 10*3/uL (0.00-0.10); Basophils % (A) 0.7 %; Eosinophils # (A) 0.37 X 10*3/uL (0.04-0.35); Eosinophils % (A) 5.4 %; HCT 38.6 % (37.2-46.3); HGB 12.4 g/dL (12.0-15.0); Lymphocytes # (A) 1.44 X 10*3/uL (0.90-5.00); MCH 27.9 pg (27.0-32.0); MCHC 32.1 g/dL (32.0-37.0); MCV 86.9 fL (80.0-97.0); Mean Platelet Volume 10.9 fL (9.5-12.2); Monocytes # (A) 0.64 X 10*3/uL (0.20-1.00); Monocytes % (A) 9.3 %; Neutrophils # (A) 4.34 X 10*3/uL (1.80-7.70); Neutrophils % (A) 63.3 %; Platelet Count 341 X 10*3/uL (140-440); RBC 4.44 X 10*6/uL (4.10-5.20); RDW 16.4 % (11.5-14.5); WBC 6.86 X 10*3/uL (4.50-10.00)
[2021-02-10 20:55] LABS: Chol/HDL Ratio 2.51 Ratio; HDL Cholesterol 65.8 mg/dL (40.00-60.00); Triglycerides 45.3 mg/dL (0.00-149.00); VLDL Calculation 9.06 mg/dL (5.00-40.00)
[2021-02-10 21:59] LABS: African American GFR (CKD) 104.2 (60.0-200.0); Albumin 3.8 g/dL (3.8-4.9); Albumin/Globulin Ratio 1.5 (1.60-3.17); Anion Gap 13.8 mmol/L (4.00-12.00); BUN/Creat Ratio 18.11 Ratio (12.00-20.00); Blood Urea Nitrogen 13.8 mg/dL (9.0-27.0); Calcium 8.8 mg/dL (8.7-10.3); Carbon Dioxide 19.1 mmol/L (21.6-31.8); Globulin 2.5 g/dL (1.6-3.3); Non-African American GFR(CKD) 89.9 (60.0-200.0); Potassium 4.8 mmol/L (3.5-5.5); Total Bilirubin 0.4 mg/dL (0.30-1.20); Total Protein 6.4 g/dL (6.2-8.2)
== END | disposition home or self-care (01) ==
LOC: LABWHC1 11:37
PROVIDERS: ATTEND Physician Assistant Medical
DX: Z00.00 Encounter for general adult medical examination without abnormal findings (principal); I10 Essential (primary) hypertension; E55.9 Vitamin D deficiency, unspecified; E78.2 Mixed hyperlipidemia
CPT/HCPCS: 36415; 80053; 80061; 82306; 84443; 85025

== ENCOUNTER → 2021-05-06 | Outpatient (CLI) | payer MEDICAID ==
--- NOTE | 2021-05-09 12:06 | MM ---
Reason for exam: screening (asymptomatic). Last mammogram was performed 1 year and 2 months ago. History: Took hormonal contraceptives for 6 years beginning at age 34. Physical Findings: A clinical breast exam by your physician is recommended on an annual basis and results should be correlated with mammographic findings. MG 3D Screening Mammo W/Cad Bilateral CC and MLO view(s) were taken. Prior study comparison: March 04, 2020, bilateral MG 3d screening mammo w/cad. August 02, 2018, bilateral MG 3d screening mammo w/cad. There are scattered fibroglandular densities. No significant changes when compared with prior studies. ASSESSMENT: Benign, BI-RAD 2 RECOMMENDATION: Routine screening mammogram of both breasts in 1 year.
== END | disposition home or self-care (01) ==
LOC: RADMAMWWP 08:22
PROVIDERS: ATTEND Family Medicine
DX: Z12.31 Encounter for screening mammogram for malignant neoplasm of breast (principal)
CPT/HCPCS: 77063; 77067

== ENCOUNTER → 2021-12-10 | Outpatient (CLI) | payer MEDICAID ==
[2021-12-10 11:53] LABS: Basophils # (A) 0.04 X 10*3/uL (0.00-0.10); Basophils % (A) 0.5 %; Eosinophils % (A) 3.6 %; HCT 44.9 % (37.2-46.3); HGB 14.5 g/dL (12.0-15.0); Immature Grans, Automated 0.2 %; Lymphocytes # (A) 1.48 X 10*3/uL (0.90-5.00); Lymphocytes % (A) 17.9 %; MCH 28.3 pg (27.0-32.0); MCHC 32.3 g/dL (32.0-37.0); MCV 87.7 fL (80.0-97.0); Mean Platelet Volume 9.8 fL (9.5-12.2); Monocytes # (A) 0.69 X 10*3/uL (0.20-1.00); Monocytes % (A) 8.4 %; NRBC Per 100 WBC 0 /100 WBCS (0.0-0.0); Neutrophils # (A) 5.73 X 10*3/uL (1.80-7.70); Neutrophils % (A) 69.4 %; Platelet Count 317 X 10*3/uL (140-440); RBC 5.12 X 10*6/uL (4.10-5.20); RDW 14.2 % (11.5-14.5); WBC 8.26 X 10*3/uL (4.50-10.00)
[2021-12-10 12:17] LABS: ALT 17 U/L (8-44); AST 18 U/L (13-35); African American GFR (CKD) 84.6 (60.0-200.0); Albumin 4.1 g/dL (3.8-4.9); Albumin/Globulin Ratio 1.28 (1.60-3.17); Alkaline Phosphatase 108 U/L (41-126); BUN/Creat Ratio 16.67 Ratio (12.00-20.00); Calcium 9.3 mg/dL (8.7-10.3); Carbon Dioxide 22.7 mmol/L (20.0-27.5); Chloride 106 mmol/L (96-109); Chol/HDL Ratio 2.53 Ratio; Creatine Kinase 65 U/L (26-186); Globulin 3.2 g/dL (1.6-3.3); Glucose 91 mg/dL (70-110); LDL Cholesterol,Calculated 84.2 mg/dL (0.0-131.0); Potassium 4.2 mmol/L (3.5-5.5); Sodium 140 mmol/L (135-145); Total Protein 7.3 g/dL (6.2-8.2)
== END | disposition home or self-care (01) ==
LOC: LABWHC1 08:29
PROVIDERS: ATTEND Physician Assistant Medical
DX: Z00.00 Encounter for general adult medical examination without abnormal findings (principal); I10 Essential (primary) hypertension; E78.2 Mixed hyperlipidemia; E55.9 Vitamin D deficiency, unspecified
CPT/HCPCS: 36415; 80053; 80061; 82306; 82550; 84443; 85025

== ENCOUNTER → 2022-05-11 | Outpatient (CLI) | payer BC ==
--- NOTE | 2022-05-12 09:19 | MM ---
Reason for Exam: Screening (asymptomatic). Last screening mammogram was performed 12 month(s) ago. Patient History: Menarche at age 10. First Full-Term at age 22. Hormonal Contraceptives for 6 years from age 34 until age 40. Last menstrual period: 04/08/2022 Risk Values: Gisel 5 year model risk: 1.0%. NCI Lifetime model risk: 7.7%. Prior Study Comparison: 08/02/2018 Bilateral Screening Mammogram, [facility]. 03/04/2020 Bilateral Screening Mammogram, [facility]. 05/06/2021 Bilateral Screening Mammogram, [facility]. Tissue Density: There are scattered fibroglandular densities. Findings: Analyzed By CAD. There is no suspicious group of microcalcifications or new suspicious mass in either breast. Chronic nodularity within the right breast. Overall Assessment: Benign, BI-RAD 2 Management: Screening Mammogram of both breasts in 1 year. A clinical breast exam by your physician is recommended on an annual basis and results should be correlated with mammographic findings. Electronically signed and approved by: Saad Morales D.O.
== END | disposition home or self-care (01) ==
LOC: RADMAMWWP 10:41
PROVIDERS: ATTEND Family Medicine
DX: Z12.31 Encounter for screening mammogram for malignant neoplasm of breast (principal)
CPT/HCPCS: 77063; 77067

== ENCOUNTER → 2023-05-18 | Outpatient (CLI) | payer BC ==
--- NOTE | 2023-05-18 16:12 | MM ---
Reason for Exam: Screening (asymptomatic). Last screening mammogram was performed 12 month(s) ago. Patient History: Menarche at age 10. First Full-Term at age 22. Hormonal Contraceptives for 6 years from age 34 until age 40. Risk Values: Gisel 5 year model risk: 1.0%. NCI Lifetime model risk: 7.5%. Prior Study Comparison: 03/04/2020 Bilateral Screening Mammogram, [facility]. 05/06/2021 Bilateral Screening Mammogram, [facility]. 05/11/2022 Bilateral MG 3D screening mammo w/cad, [facility]. Tissue Density: There are scattered fibroglandular densities. Findings: Analyzed By CAD. There is no suspicious group of microcalcifications or new suspicious mass. Overall Assessment: Negative, BI-RAD 1 Management: Screening Mammogram of both breasts in [address] [facility] will attempt to contact patient to return for supplemental views and ultrasound if indicated. Patient should continue monthly self-breast exams. A clinical breast exam by your physician is recommended on an annual basis. This exam should not preclude additional follow-up of suspicious palpable abnormalities. Note on Gisel scores and lifetime risk: 1. A Gisel score greater than 3% is considered moderate risk. If this is the case, consider specialist referral to assess eligibility for a risk reducing agent. 2. If overall lifetime risk for the development of breast cancer is 20% or higher, the patient may qualify for future screening with alternating mammogram and breast MRI. Electronically signed and approved by: Vitaliy Galindo DO
== END | disposition home or self-care (01) ==
LOC: RADMAMWWP 08:04
PROVIDERS: ATTEND Family Medicine
DX: Z12.31 Encounter for screening mammogram for malignant neoplasm of breast (principal)
CPT/HCPCS: 77063; 77067

== ENCOUNTER → 2024-03-21 | Outpatient (CLI) | payer BC ==
--- NOTE | 2024-03-21 16:54 | US ---
EXAMINATION TYPE: US carotid duplex BILAT DATE OF EXAM: 03/21/2024 COMPARISON: NONE CLINICAL INDICATION: Female, 53 years old with history of R0989 OT SYMPTOMS AND SIGNS INVOLVING THE CIRC AN; bruit on left side Additional History: R09.89 Carotid bruit TECHNIQUE: Grayscale, color Doppler and spectral Doppler evaluation of the bilateral carotid systems and vertebral arteries. Indirect Doppler criteria was utilized. FINDINGS: EXAM MEASUREMENTS: RIGHT: Peak Systolic Velocity (PSV) cm/sec ----- Right CCA: 72.7 ----- Right ICA: 61.3 ----- Right ECA: 87.2 ICA/CCA ratio: 0.8 RIGHT: End Diastole cm/sec ----- Right CCA: 21.2 ----- Right ICA: 15.1 ----- Right ECA: 14.4 LEFT: Peak Systolic Velocity (PSV) cm/sec ----- Left CCA: 71.8 ----- Left ICA: 86.4 ----- Left ECA: 88.6 ICA/CCA ratio: 1.2 LEFT: End Diastole cm/sec ----- Left CCA: 22.3 ----- Left ICA: 31.4 ----- Left ECA: 12.8 VERTEBRALS (direction of flow): Right Vertebral: Antegrade Left Vertebral: Antegrade Rhythm: Normal DIESEL POWER [employer]CH[employer]IC NOTES: No plaque seen. No elevated velocities. Left ICA appears to be slightly tortuous d istally Color Doppler imaging shows patency with blood flow throughout the carotid artery. Spectral waveforms are within normal limits. IMPRESSION: No ultrasound evidence for hemodynamically significant stenosis of the bilateral visualized carotid a rterial systems. Criteria for Assigning % of Stenosis / Diameter reduction (Estimation based on the indirect measurements of the internal carotid artery velocities (ICA PSV). 1. Normal (no stenosis)=ICA PSV < 125 cm/s: ratio < 2.0: ICA EDV<40 cm/s. 2. Less than 50% stenosis=ICA PSV < 125 cm/s: ratio < 2.0: ICA EDV<40 cm/s. 3. 50 to 69% stenosis=ICA PSV of 125 to 230 cm/s: ration 2.0 ? 4.0: ICA EDV 40-100 cm/s. 4. Greater than 70% stenosis to near occlusion= ICA PSV > 230 cm/s: ratio > 4.0: ICA EDV > 100 cm/s. 5. Near occlusion= ICA PSV velocities may be low or undetectable: variable ratio and ICA EDV. 6. Total occlusion=unable to detect flow. [facility], , 03/21/2024 4:52 PM
== END | disposition home or self-care (01) ==
LOC: RADUSWWP 16:14
PROVIDERS: ATTEND Family Medicine
DX: R09.89 Other specified symptoms and signs involving the circulatory and respiratory systems (principal); R42 Dizziness and giddiness; R06.02 Shortness of breath
CPT/HCPCS: 93880

== ENCOUNTER → 2024-05-19 | Outpatient (CLI) | payer BC ==
--- NOTE | 2024-05-19 10:01 | MM ---
Reason for Exam: Screening (asymptomatic). Last screening mammogram was performed 12 month(s) ago. Patient History: Menarche at age 10. First Full-Term at age 22. Hormonal Contraceptives for 6 years from age 34 until age 40. Risk Values: Gisel 5 year model risk: 1.1%. NCI Lifetime model risk: 7.4%. Prior Study Comparison: 05/06/2021 Bilateral Screening Mammogram, [facility]. 05/11/2022 Bilateral MG 3D screening mammo w/cad, [facility]. 05/18/2023 Bilateral MG 3D screening mammo w/cad, [facility]. Tissue Density: There are scattered areas of fibroglandular density. Findings: Analyzed By CAD. Right breast: There is no suspicious group of microcalcifications or new suspicious mass. Left breast: There is no suspicious group of microcalcifications or new suspicious mass. Overall Assessment: Negative, BI-RAD 1 Management: Screening Mammogram of both breasts in [address] [facility] will attempt to contact patient to return for supplemental views and ultrasound if indicated. Patient should continue monthly self-breast exams. A clinical breast exam by your physician is recommended on an annual basis. This exam should not preclude additional follow-up of suspicious palpable abnormalities. Note on Gisel scores and lifetime risk: 1. A Gisel score greater than 3% is considered moderate risk. If this is the case, consider specialist referral to assess eligibility for a risk reducing agent. 2. If overall lifetime risk for the development of breast cancer is 20% or higher, the patient may qualify for future screening with alternating mammogram and breast MRI. [facility], , 05/19/2024 9:58 AM. Electronically signed and approved by: Vitaliy Galindo DO
== END | disposition home or self-care (01) ==
LOC: RADMAMWWP 09:17
PROVIDERS: ATTEND Family Medicine
DX: Z12.31 Encounter for screening mammogram for malignant neoplasm of breast (principal); R92.323 Mammographic fibroglandular density, bilateral breasts
CPT/HCPCS: 77063; 77067